=== PATIENT | female | born 1960 | race Caucasian/White ===

== ENCOUNTER 2021-01-11 10:57 | Outpatient (CLI) | payer OTHER, SELFPAY ==
--- NOTE | ~2021-01-11 | XR_ITS ---
EXAMINATION: XR sternum min 2V DATE: 01/11/2021 11:38 INDICATION: Upper anterior chest pain TECHNIQUE: Lateral and oblique PA views of the sternum were obtained. COMPARISON: PA and lateral chest radiograph dated 12/04/2015 FINDINGS: Alignment is normal. No fracture. Mild to moderate osteoarthritis at the bilateral sternoclavicular j oints. The presternal and retrosternal tissues appear unremarkable with no evident soft tissue swelli ng. Visualized portion of the lungs are clear. No evident pleural effusion or pneumothorax. Moderate thoracic spondylosis. IMPRESSION: 1. No acute osseous abnormality. Reviewed, dictated and finalized at location A.
== END 2021-01-11 10:58 | disposition home or self-care (01) ==
LOC: ANHIMG 11:00
PROVIDERS: PCP Physician Assistant; Visit Provider Physician Assistant
DX: R07.89 Other chest pain (principal)
CPT/HCPCS: 71120

== ENCOUNTER 2021-03-18 03:42 | Emergency (ER) | payer OTHER, SELFPAY ==
[2021-03-18] VITALS (13 sets, daily range): BP systolic 121–148; BP diastolic 52–95; PULSE 94–113; RESP 14–28; TEMP 37.2; O2SAT 95–98
--- NOTE | ~2021-03-18 | CT_ITS ---
EXAMINATION: CTA chest PE protocol DATE: 03/18/2021 05:22 INDICATION: Dyspnea and elevated d-dimer. TECHNIQUE: Computed tomography (CT) pulmonary angiogram of the chest was performed with 100 mL Omnipa que-350 intravenous contrast. Additional 3D reconstructions utilizing coronal maximum intensity proje ction (MIP) were performed. The dose-length product was 841.37 mGy-cm. COMPARISON: None FINDINGS: Good contrast opacification of the pulmonary arteries. There is mild streak artifact from dense contr ast in the superior vena cava and right atrium. Mild scattered respiratory motion artifact. Together this only minimally decreases sensitivity in the smaller subsegmental pulmonary arteries. No pulmonar y embolism. There are bilateral patchy groundglass opacities many of which appear to spare the immedi ately subpleural lung which would argue against pulmonary infarcts in these are most likely infectiou s/inflammatory in etiology. No pleural effusion or pneumothorax. Small calcified right lower lobe nod ule consistent with old granulomatous disease. Heart size is normal. No pericardial effusion. Thoraci c aorta is normal in caliber with no dissection. Mild likely reactive right hilar lymphadenopathy. Sm all sliding-type hiatal hernia. Diffuse hepatic steatosis. A couple low-attenuation hepatic cysts the largest measuring 1.5 cm. Mild to moderate thoracic spondylosis. IMPRESSION: 1. No pulmonary embolism. 2. Bilateral patchy groundglass opacities most prominent in the right lower lobe which are most likel y infectious/inflammatory in etiology. Reviewed, dictated and finalized at location A. K CLIPPER IMPRESSION: 1. No pulmonary embolism. 2. Bilateral patchy groundglass opacities most prominent in the right lower lob e which are most likely infectious/inflammatory in etiology.
--- NOTE | ~2021-03-18 | XR_ITS ---
EXAMINATION: XR chest 1V portable DATE: 03/18/2021 04:44 INDICATION: Cough . Centralized chest pain. TECHNIQUE: frontal view of the chest was obtained. COMPARISON: Chest radiograph dated 12/04/2015 FINDINGS: Subtle opacity in the right lower lung zones. No pleural effusion or pneumothorax. The cardiomediasti nal silhouette is normal. Mild lower thoracic levocurvature with moderate spondylosis. IMPRESSION: 1. Subtle opacity right lower lung zone which could represent atelectasis or pneumonia. Reviewed, dictated and finalized at location A. DENCY DIRECTOR IMPRESSION: 1. Subtle opacity right lower lung zone which could represent atelectasis or pn eumonia.
--- NOTE | 2021-03-18 04:03 | ECG_ITS ---
Measurements Intervals [place] Rate: 95 P: 61 AL: 157 QRS: 34 QRSD: 85 T: 59 QT: 334 QTc: 421 Interpretive Statements SINUS RHYTHM BASELINE ARTIFACT- I, II, III, AVR, AVL, AVF, V2-V6 NORMAL ECG Electronically Signed On 03-18-2021 6:55:46 NURSERY HELPER by Felice Mireles D.O.
--- NOTE | 2021-03-18 04:11 | ED.GENADULT ---
HPI - General Adult General Chief complaint: Weakness Stated complaint: painful inspiration Time Seen by Provider: 03/18/21 03:56 History of Present Illness HPI narrative: Patient 41-year-old female presents the emergency department with chief complaint of generalized malaise. The patient states for the last 2-week she has had a cough that has been nonproductive. The patient states that she has been attempting [id number] medications without improvement patient reports she has not been vaccinated for COVID-19 it is concerned that she may have COVID-19 patient reports he has had fevers at home reports that is not improved by anything and report that it is not worsened by anything either. Patient denies smoking Related Data Allergies Allergy/AdvReac Type Severity Reaction Status Date / Time estradiol AdvReac Unknown Unknown Verified 03/18/21 03:56 venlafaxine AdvReac Unknown Nervousness Verified 03/18/21 03:56 Review of Systems Review of Systems: A 10 system review of systems was completed on the patient and is negative except for what is stated in the HPI. Nursing and ancillary documentation was reviewed. [facility] Past Medical History Medical History Ovarian cyst Family History Family History Mother Patient's mother is in good health Diabetes mellitus Father Patient's father is Diabetes mellitus Hypertension Sibling Patient's sister is in good health Grandparent Family history of malignant neoplasm Social History Social History Smoking status: Never smoker Second hand tobacco smoke exposure: No Alcohol intake: never Exam Narrative: GENERAL: Well-appearing, well-nourished, and in no acute distress. HEAD: Normocephalic, atraumatic. EYES: PERRLA and EOMI. ENT: Nares clear, no rhinorrhea or epistaxis. Mucous membranes moist. NECK: Supple. CHEST: Clear to auscultation. No respiratory distress. HEART: Regular rate and rhythm. No murmur heard. Normal peripheral pulses. ABDOMEN: Soft, nontender, nondistended, normal active bowel sounds. EXTREMITIES: Normal range of motion. No edema. SKIN: Warm, dry, no rash. NEURO: No focal deficits. Alert and oriented x3. PSYCH: Normal mood and affect. Course Vital Signs Vital signs: Vital Signs Temperature 37.2 C 03/18/21 03:49 Pulse Rate 104 H 03/18/21 03:49 Respiratory Rate 19 03/18/21 03:49 Blood Pressure 145/87 H 03/18/21 03:49 Pulse Oximetry 96 03/18/21 03:49 Temperature 37.2 C 03/18/21 03:49 Pulse Rate 98 03/18/21 06:16 Respiratory Rate 18 03/18/21 06:16 Blood Pressure 128/73 03/18/21 06:16 Pulse Oximetry 95 03/18/21 06:16 Medical Decision Making Vital Signs Vital Signs: Vital Signs Temperature 37.2 C 03/18/21 03:49 Pulse Rate 104 H 03/18/21 03:49 Respiratory Rate 19 03/18/21 03:49 Blood Pressure 145/87 H 03/18/21 03:49 Pulse Oximetry 96 03/18/21 03:49 Temperature 37.2 C 03/18/21 03:49 Pulse Rate 98 03/18/21 06:16 Respiratory Rate 18 03/18/21 06:16 Blood Pressure 128/73 03/18/21 06:16 Pulse Oximetry 95 03/18/21 06:16 Lab Data Result diagrams: 03/18/21 04:11 03/18/21 04:11 Labs: Lab Results 03/18/21 03/18/21 03/18/21 Range/Units 04:11 04:11 04:11 WBC 2.3 L (4.5-10.0) K/mm3 RBC 4.06 L (4.2-5.4) M/mm3 Hgb 12.6 (12.0-15.0) g/dL Hct 36.7 L (37.0-47.0) % MCV 90.4 (80-100) fl MCH 31.0 (26-34) pg MCHC 34.3 (32-36) g/dl RDW 12.2 (11.5-14.5) % Plt Count 160 (150-375) k/mm3 MPV 9.8 (7.4-10.4) fl Immature Gran % (Auto) 0.4 (0-0.5) % Neut % (Auto) 52.4 (45.5-73.1) % Lymph % (Auto) 39.8 (18.3-44.2) % Cobb % (Auto) 6.6 (2.6-8.5) % Eos % (Auto) 0.4 (0-4.4) % Baso % (Auto) 0.
[2021-03-18] MEDS: BENZONATATE 100 MG CAPSULE 200 MG PO (04:15)
[2021-03-18 04:28] LABS: Basophils Percent Auto 0.4 % (0.2-1.2); Eosinophils Percent Auto 0.4 % (0-4.4); Hematocrit 36.7 % (37.0-47.0); Hemoglobin 12.6 g/dL (12.0-15.0); Immature Granulocyte Absolute 0.01 K/mm3 (0.00-0.031); Immature Granulocyte Percent A 0.4 % (0-0.5); Lymphocytes Percent Auto 39.8 % (18.3-44.2); Mean Corpuscular HGB Conc 34.3 g/dl (32-36); Mean Corpuscular Volume 90.4 fl (80-100); Mean Platelet Volume 9.8 fl (7.4-10.4); Monocytes Absolute Auto 0.2 K/mm3 (0.1-0.6); Monocytes Percent Auto 6.6 % (2.6-8.5); Neutrophils Absolute Auto 1.2 K/mm3 (1.3-6.7); Neutrophils Percent Auto 52.4 % (45.5-73.1); Platelet Count Result 160 k/mm3 (150-375); Red Blood Count 4.06 M/mm3 (4.2-5.4); Red Cell Distribution Width 12.2 % (11.5-14.5); White Blood Count 2.3 K/mm3 (4.5-10.0)
[2021-03-18 04:39] LABS: Alanine Aminotransferase 35 U/L (4-35); Albumin Level 3.8 g/dL (3.5-5.1); Alkaline Phosphatase 101 U/L (38-126); Anion Gap 8 mmol/L (8-16); Aspartate Amino Transferase 46 U/L (14-36); Bilirubin,Total 0.3 mg/dL (0.2-1.3); Blood Urea Nitrogen 16 mg/dL (7-17); Calcium 8.6 mg/dL (8.4-10.2); Carbon Dioxide 24 mmol/L (22-30); Chloride 102 mmol/L (98-107); Estimated CRCL calculation 108 ml/min; Estimated Glomerular Filt Rate > 60; Glucose 171 mg/dL (65-110); Lactic Acid Reflex 1.2 mmol/L (0.7-2.1); Potassium 3.8 mmol/L (3.4-5.0); Sodium 134 mmol/L (137-145)
[2021-03-18 04:40] LABS: D Dimer 0.53 ug/mL (<0.48)
--- NOTE | 2021-03-18 04:41 | PC.NURSE ---
PCXR being done. RT in department preparing to give pt the UDT.
[2021-03-18] MEDS: ALBUTEROL SULFATE (*SP) INHALER 2 PUFF INHALATION (04:44)
[2021-03-18 04:51] LABS: NT Pro B Type Natriuretic Pept 26 pg/mL (5-100); Troponin I < 0.012 ng/mL (0.000-0.034)
[2021-03-18 20:04] LABS: SARS-CoV-2 RNA PCR Positive
== END 2021-03-18 07:10 | disposition home or self-care (01) ==
PROVIDERS: Emergency Provider Emergency Medicine; PCP Physician Assistant
DX: U07.1 COVID-19 (principal); J12.82 Pneumonia due to coronavirus disease 2019
CPT/HCPCS: 36415; 71045; 71275; 80053; 83605; 83880; 84484; 85025; 85380; 87081; 87804; 87880; 93005; 99284; A9270; C9803; Q9967; U0003; U0005

== ENCOUNTER 2021-03-21 07:36 | Outpatient (RCR) | payer OTHER, SELFPAY ==
[2021-03-21 11:29] VITALS: BP 100/52; PULSE 80; RESP 18; TEMP 36.7; O2SAT 93
[2021-03-21] MEDS: diphenhydrAMINE HCl CAP 25 MG CAPSULE PO (11:32)
[2021-03-21] MEDS: ACETAMINOPHEN 325 MG TABLET 650 MG PO (11:32)
[2021-03-21] MEDS: FAMOTIDINE 20 MG TABLET PO (11:32)
[2021-03-21 12:55] VITALS: BP 106/49
--- NOTE | 2021-03-22 08:35 | PC.NURSE ---
Spoke to Ms Ramires, she stated she is still having some discomfort this morning but her Diarrhea has stopped by taking Imodium. She had a fever last night that was very high and called the ER but they told her to wait it out she stated, there would be a 5 hour wait to see her. She feels very weak today and dehydrated, and still having belly pain. I told her to go to the ER for hydration, and or call her PCP to see if they provided any other help. She said she would call PCP first otherwise she is going today to the ER. No other questions at this time.
== END 2021-03-21 17:00 ==
LOC: AMCINF 07:36
PROVIDERS: PCP Physician Assistant; Visit Provider Internal Medicine Hematology & Oncology
DX: U07.1 COVID-19 (principal)
CPT/HCPCS: A9270; M0243; Q0243

== ENCOUNTER 2021-03-24 15:07 | Inpatient (IN) | payer OTHER, SELFPAY ==
--- NOTE | ~2021-03-24 | XR_ITS ---
EXAMINATION: XR chest 1V portable EXAM DATE: 04/01/2021 08:36 INDICATION: COVID pneumonia. TECHNIQUE: Portable AP frontal chest x-ray was obtained. Comparison is made to prior examination from 03/24/2021. FINDINGS: Change in appearance of the COVID pneumonia to subacute stage with development of regions o f linear solid density, scarring/atelectasis. No new areas of opacification. No pneumothorax or pleur al effusion. Cardiomediastinal silhouette is normal. Mild thoracic spondylosis. IMPRESSION: Subacute COVID pneumonia. Reviewed, dictated and finalized at location B. SROOTS ORGANIZER IMPRESSION: Subacute COVID pneumonia.
--- NOTE | ~2021-03-24 | CT_ITS ---
EXAMINATION: CT chest abdomen pelvis wo con DATE: 04/02/2021 09:22 INDICATION: Diarrhea. COVID-19 pneumonia. TECHNIQUE: Computed tomography (CT) of the chest, abdomen, and pelvis was performed without intraveno us contrast. Automated exposure control and iterative reconstruction technique were employed. The dos e-length product was 1649.46 mGy-cm. COMPARISON: Chest CT 03/24/2021 FINDINGS: CHEST CT: There are patchy airspace and groundglass opacities with architectural distortion involving all lobes . No pleural effusion. The heart size is normal. No pericardial effusion. There is moderate thoracic spondylosis. ABDOMEN/PELVIS CT: There is a 16 mm cyst in the liver. The spleen, gallbladder, pancreas, adrenal glands, and kidneys ar e normal. There is no urolithiasis. There are no dilated loops of bowel. The colon is decompressed. T here is mild wall thickening of the rectosigmoid. The appendix is normal. There is a small sliding hi atal hernia. There are no pathologically enlarged lymph nodes. There is no free intraperitoneal fluid . There is mild lumbar spondylosis. IMPRESSION: 1. Diffuse lung disease with improvement from 03/24/2021, consistent with COVID-19 pneumonia. 2. Mild wall thickening of the rectosigmoid, consistent with colitis. Reviewed, dictated and finalized at location A. LATOR TECHNICIAN IMPRESSION: 1. Diffuse lung disease with improvement from 03/24/2021, consistent with COVID- 19 pneumonia. 2. Mild wall thickening of the rectosigmoid, consistent with colitis.
--- NOTE | ~2021-03-24 | US_ITS ---
EXAMINATION: US abdomen limited DATE: 03/25/2021 07:51 INDICATION: Gallbladder distention. TECHNIQUE: Multiple grayscale and Doppler ultrasound images of the abdomen were obtained. COMPARISON: Chest CT 03/24/2021 FINDINGS: The visualized portions of the head, body, and tail of the pancreas are normal. There is di ffuse hepatic steatosis. There is a 7 mm cyst in the liver. There is normal flow in main portal vein. The gallbladder is normal in size. No gallstones or gallbladder wall thickening. There was no sonogr aphic Conway sign. The common duct measures 7 mm. IMPRESSION: 1. Diffuse hepatic steatosis. 2. Mildly dilated common duct measuring 7 mm. Reviewed, dictated and finalized at location A. ACTOR OPERATOR SOLVENT PROCESS
--- NOTE | ~2021-03-24 | XR_ITS ---
EXAMINATION: XR chest 1V portable DATE: 03/24/2021 15:46 INDICATION: Shortness of breath. COVID-19 positive. TECHNIQUE: A single frontal view of the chest was obtained. COMPARISON: Chest single view 03/18/2021, chest CT 03/18/2021 FINDINGS: There are patchy airspace opacities in all lung zones bilaterally with sparing of the lung apices. No pleural effusion or pneumothorax. The heart size is normal. IMPRESSION: 1. Worsened diffuse lung disease, consistent with COVID-19 pneumonia. Reviewed, dictated and finalized at location A. DERER HAND
--- NOTE | ~2021-03-24 | CT_ITS ---
EXAMINATION: CTA chest PE protocol DATE: 03/24/2021 17:30 INDICATION: COVID-19 pneumonia. Tachycardia. TECHNIQUE: Computed tomography angiography (CTA) of the chest was performed with 100 mL Omnipaque-350 intravenous contrast timed to evaluate the pulmonary arteries. Coronal maximum intensity projection 3D-reconstructions were created by the technologist. Automated exposure control and iterative reconst ruction technique were employed. The dose-length product was 675.76 mGy-cm. COMPARISON: Chest CT 03/18/2021 FINDINGS: There are airspace and groundglass opacities and septal thickening throughout the lungs melyssa aterally. No pleural effusion. The heart size is normal. No pericardial effusion. There is no pulmona ry embolus. The gallbladder is distended. There is mild thoracic spondylosis. IMPRESSION: 1. No pulmonary embolus. 2. Worsened diffuse lung disease, consistent with COVID-19 pneumonia. 3. Gallbladder distention, which may be secondary to fasting. Correlate with physical exam to exclude acute cholecystitis. Reviewed, dictated and finalized at location A. TRONIC SYSTEMS SECURITY ASSESSMENT IMPRESSION: 1. No pulmonary embolus. 2. Worsened diffuse lung disease, consistent with COVID-19 pneumonia. 3. Gallbladder distention, which may be secondary to fasting. Correlate with ph ysical exam to exclude acute cholecystitis.
[2021-03-24 15:14] VITALS: BP 150/76; PULSE 100; RESP 19; TEMP 37.9; O2SAT 91
--- NOTE | 2021-03-24 15:15 | ECG_ITS ---
Measurements Intervals [place] Rate: 103 P: 14 NM: 148 QRS: 8 QRSD: 98 T: 29 QT: 348 QTc: 456 Interpretive Statements SINUS TACHYCARDIA MINIMAL Q WAVES- INFERIOR LEADS BORDERLINE ST-T WAVE ABNORMALITY- DIFFUSE LEADS BASELINE ARTIFACT- I, II, III, AVR, AVF, V1-V6 BORDERLINE ECG Electronically Signed On 03-24-2021 17:11:53 PUBLIC ADDRESS TECHNICIAN by Felice Mireles D.O.
[2021-03-24 15:20] VITALS: BP 144/80; PULSE 103; RESP 26; TEMP 37.1; O2SAT 90
[2021-03-24 15:37] VITALS: PULSE 109
--- NOTE | 2021-03-24 15:39 | ED.GENADULT ---
HPI - General Adult General Chief complaint: Shortness of Breath/Dyspnea Stated complaint: SOB, COVID + Source: patient Mode of arrival: ambulatory Limitations: no limitations History of Present Illness HPI narrative: Patient presents for evaluation of generalized weakness. She was seen here on 03/18/21 for cough. Her symptoms had started two weeks prior to date of her evaluation. She had a CXR that showed subtle opacity in the right lower lung zone. D-dimer was mildly elevated at 0.53. CTA of the chest showed no pulmonary embolism. There was bilateral patchy groundglass opacities most prominent in the right lower lobe. She was diagnosed with pneumonia. Her Covid test resulted as positive. She was sent home with prescriptions for azithromycin and cefdinir. She has been taking both medications as directed. She states that she feels worse then at the time of her previous evaluation here. She has experienced fatigue, fever, chills, shortness of breath, nausea, vomiting and diarrhea. She has underlying anxiety and attempted to come off her medications for anxiety back in January. She noted recurrence of her anxiety since stopping her medications and her symptoms have worsened since her sick symptoms. She reports sensation that her heart is racing. She tried using albuterol but states that worsened the sensation that her heart was racing. She did not receive COVID vaccination. She lives with her , who is also not vaccinated. He is not sick at this time. She has experienced xerostomia, loss of taste/smell, and decreased appetite. She states that she has not been eating or drinking and she feels dehydrated . Related Data Allergies Allergy/AdvReac Type Severity Reaction Status Date / Time estradiol AdvReac Unknown Unknown Verified 03/24/21 15:38 venlafaxine AdvReac Unknown Nervousness Verified 03/24/21 15:38 Review of Systems Review of Systems: CONSTITUTIONAL: Reports fever and chills EYES: Denies visual changes, redness, or discharge. ENT: Reports dry mouth. Reports loss of taste and smell. Denies rhinorrhea, congestion, sore throat, or otalgia. CARDIOVASCULAR: Reports chest pain and palpitations. Denies edema RESPIRATORY:Reports cough and shortness of breath GASTROINTESTINAL: Reports nausea, vomiting and diarrhea. Denies abdominal pain GENITOURINARY: Denies dysuria or hematuria. SKIN: Denies rash or itching. MUSCULOSKELETAL: Denies back pain, joint pain, or myalgia. NEUROLOGIC: Reports generalized weakness. Denies headache, numbness, or dizziness PSYCHIATRIC: Reports anxiety. Denies depression. [facility] Past Medical History Medical History (Updated 03/24/21 @ 17:58 by OSVALDO Lowe, ) Anxiety COVID Depression GERD (gastroesophageal reflux disease) Hypertension Ovarian cyst Surgical History Surgical History H/O lumpectomy History of removal of ovarian cyst Family History Family History Mother Patient's mother is in good health Diabetes mellitus Father Patient's father is Diabetes mellitus Hypertension Sibling Patient's sister is in good health Grandparent Family history of malignant neoplasm Social History Social History Smoking status: Never smoker Second hand tobacco smoke exposure: No Alcohol intake: never Substance use: never Living arrangements: with family Gender identity (if verbalized by the patient): Female Sexual Orientation (if Verbalized by the Patient): Straight or Heterosexual Spiritual care concerns: No Exam Narrative: GENERAL: Well-appearing, well-nourished, and in mild distress HEAD: Normocephalic, atraumatic. EYES: PERRLA and EOMI. ENT: Nares clear, no rhinorrhea or epistaxis. Mucous membranes moist. Oropharynx without tonsillar hypertrophy exudate or
[2021-03-24 15:51] LABS: Alveolar/Arterial O2 Gradient 81.9 mmHg; Base Excess ABG 3.3 mEq/l (+/-2.0); Carboxyhemoglobin 0.6 % THb (0-2.0); Fractional Inspired Oxygen 21 %; HCO3 ABG 26.8 mEq/l (22.0-26.0); Methemoglobin ABG 0.2 %THb (0-1.5); Oxygen Content ABG 9.3 %vol (16.0-22.0); PCO2 ABG 37.3 mmHg (35.0-45.0); Reduced Hemoglobin 53.8 %THb (0-5.0); Total Hemoglobin 14.7 g/dL (12.0-18.0); pH ABG 7.475 (7.350-7.450)
[2021-03-24 15:52] LABS: PO2 ABG 23.2 mmHg (80.0-100.0)
[2021-03-24] MEDS: SODIUM CHLORIDE 0.9% IV 1,000 ML 999 ML IV CONT (15:52)
[2021-03-24] MEDS: ACETAMINOPHEN 325 MG TABLET 650 MG PO (15:52)
[2021-03-24 15:54] LABS: Device ROOM AIR; Oxygen Saturation ABG 45.2 % (95.0-100.0); Oxyhemoglobin 45.4 % THb (90.0-100.0); Site Drawn RIGHT BRACHIAL
[2021-03-24 16:01] LABS: Basophils Percent Auto 0.4 % (0.2-1.2); Hematocrit 40.2 % (37.0-47.0); Hemoglobin 13.6 g/dL (12.0-15.0); Immature Granulocyte Absolute 0.07 K/mm3 (0.00-0.031); Immature Granulocyte Percent A 1.2 % (0-0.5); Lymphocytes Absolute Auto 0.93 K/mm3 (0.9-3.2); Lymphocytes Percent Auto 16.5 % (18.3-44.2); Mean Corpuscular HGB Conc 33.8 g/dl (32-36); Mean Corpuscular Hemoglobin 29.8 pg (26-34); Mean Corpuscular Volume 88.2 fl (80-100); Mean Platelet Volume 9.7 fl (7.4-10.4); Monocytes Absolute Auto 0.4 K/mm3 (0.1-0.6); Monocytes Percent Auto 6.8 % (2.6-8.5); Neutrophils Absolute Auto 4.2 K/mm3 (1.3-6.7); Neutrophils Percent Auto 75.1 % (45.5-73.1); Platelet Count Result 238 k/mm3 (150-375); Red Blood Count 4.56 M/mm3 (4.2-5.4); Red Cell Distribution Width 12.6 % (11.5-14.5); White Blood Count 5.6 K/mm3 (4.5-10.0)
[2021-03-24 16:09] LABS: INR 0.9; Prothrombin Time 12.5 Seconds (11.1-14.7)
[2021-03-24 16:10] LABS: Lactic Acid Reflex 1.4 mmol/L (0.7-2.1); Partial Thromboplastin Time 27.6 SECONDS (22.3-36.8)
[2021-03-24 16:44] LABS: Troponin I 0.016 ng/mL (0.000-0.034)
[2021-03-24 16:55] LABS: Alanine Aminotransferase 56 U/L (4-35); Albumin Level 3.4 g/dL (3.5-5.1); Alkaline Phosphatase 56 U/L (38-126); Anion Gap 5 mmol/L (8-16); Aspartate Amino Transferase 110 U/L (14-36); Bilirubin,Total 0.5 mg/dL (0.2-1.3); Blood Urea Nitrogen 7 mg/dL (7-17); CRP 15.1 mg/dL (<1.0); Calcium 7.5 mg/dL (8.4-10.2); Carbon Dioxide 28 mmol/L (22-30); Chloride 100 mmol/L (98-107); Estimated CRCL calculation 113 ml/min; Estimated Glomerular Filt Rate > 60; Glucose 99 mg/dL (65-110); Potassium 3.3 mmol/L (3.4-5.0); Sodium 133 mmol/L (137-145)
[2021-03-24] MEDS: DEXAMETHASONE SOD PHOS INJ 4 MG/ML VIAL 6 MG IV PUSH (17:05)
[2021-03-24] MEDS: hydrOXYzine pamoate 25 MG CAPSULE PO (17:05)
[2021-03-24 18:12] LABS: Magnesium 2.1 mg/dL (1.6-2.3)
[2021-03-24 18:25] LABS: Troponin I 0.022 ng/mL (0.000-0.034)
--- NOTE | 2021-03-24 19:58 | PM.IMHP ---
H&P: HPI History of Present Illness Date/Time: 03/24/21 19:58thialaina is a 61 year old female that tested positive for covid 03/18/21. The patient has been having generalized weakness and a cough. The patient had a chest x-ray when she was here in the emergency room on 03/18/2021 which showed subtle opacity of the right lower lung zones. She had elevated D-dimer at that time 0.53. CT of the chest showed no pulmonary embolism. She has been using her albuterol but has not helped her. She has had a poor appetite and has not been eating or drinking much. Chest x-ray today was read as worsened diffuse lung disease consistent with COVID 19 pneumonia. CTA pulmonary was read as no pulmonary emboli. Worsened diffuse lung disease, consistent with COVID-19 pneumonia. Gallbladder distention which BP secondary to fasting. Correlate with physical examination to exclude acute cholecystitis. The patient stated that she has generalized achiness and weakness. She said that she has had a terrible cough. The patient stated that she had a high fever several days ago. She did have the monoclonal infusion outpatient. Blood pressure was 144/80 and 105 or 58 respirations 26-28. Temperature 37.9? C. potassium 3.3. Calcium 7.5. AST 110 and ALT 56. CRP 15.1 patient is being admitted to inpatient services on date of service of 03/24/2020. Chief Complaint: sob Review of Systems Review of Systems: All systems reviewed & are unremarkable except as noted in HPI and below Constitutional: Constitutional: Reports as per HPI and Reports no additional constitutional complaints Eyes: Eyes: Reports as per HPI and Reports no additional eye complaints ENT: Reports system reviewed and no additional complaints, except as documented and Reports Normal hearing present Cardiovascular: Cardiovascular: Reports no additional cardiovascular complaints Respiratory: Respiratory: Reports no additional respiratory complaints and Reports no additional respiratory complaints Gastrointestinal: Gastrointestinal: Reports as per HPI and Reports no additional gastrointestinal complaints Musculoskeletal: Musculoskeletal: Reports no additional musculoskeletal complaints Integumentary/Breasts: Skin/Breast: Reports system reviewed and no additional complaints, except as docu and Reports as per HPI Neurologic: Reports system reviewed and no additional complaints, except as documented, Reports as per HPI and Reports Normal hearing present Psychiatric: Psychiatric: Reports no additional psychiatric complaints and Reports as per HPI Endocrine: Endocrine: Reports no additional endocrine complaints Hematologic/Lymphatic: Hematologic/Lymphatic: Reports no additional hematologic/lymphatic complaints Allergic/Immunologic: Allergic/Immunologic: Reports no additional allergic/immunologic complaints PMF Past Medical History Medical History (Updated 03/24/21 @ 20:22 by Shae Arizmendi NP) Anxiety Anxiety COVID Depression GERD (gastroesophageal reflux disease) Hypertension Ovarian cyst Tachycardia Surgical History Surgical History H/O lumpectomy History of removal of ovarian cyst Family History Family History Mother Patient's mother is in good health Diabetes mellitus Father Patient's father is Diabetes mellitus Hypertension Sibling Patient's sister is in good health Grandparent Family history of malignant neoplasm Social History Social History Social History: The patient lives with her and she has 1 child. The patient and her own a business. The patient is a lifelong nonsmoker and does not use any alcohol or illicit drugs. Her is a durable power finance attorney for healthcare. Code status full code Smoking status: Never smoker Second hand tobacco smoke exposure: No Alc
[2021-03-24 20:09] VITALS: BP 105/58; PULSE 84; RESP 28; O2SAT 97
[2021-03-24 21:26] VITALS: BMI 29.3
[2021-03-24 22:00] VITALS: BP 122/56; PULSE 80; RESP 18; TEMP 36.2; O2SAT 91
[2021-03-24 22:01] VITALS: O2SAT 95
[2021-03-24] MEDS: PANTOPRAZOLE SODIUM IV 40 MG VIAL IV PUSH (22:39)
[2021-03-25] VITALS (8 sets, daily range): BP systolic 106–133; BP diastolic 44–70; PULSE 62–91; RESP 18; TEMP 35.8–36.6; O2SAT 90–93
[2021-03-25 07:14] LABS: Basophils Percent Auto 0.4 % (0.2-1.2); Hematocrit 38.6 % (37.0-47.0); Immature Granulocyte Absolute 0.06 K/mm3 (0.00-0.031); Immature Granulocyte Percent A 1.3 % (0-0.5); Lymphocytes Absolute Auto 0.69 K/mm3 (0.9-3.2); Lymphocytes Percent Auto 14.7 % (18.3-44.2); Mean Corpuscular HGB Conc 33.7 g/dl (32-36); Mean Corpuscular Hemoglobin 30.4 pg (26-34); Mean Corpuscular Volume 90.2 fl (80-100); Mean Platelet Volume 9.7 fl (7.4-10.4); Monocytes Absolute Auto 0.3 K/mm3 (0.1-0.6); Monocytes Percent Auto 7.2 % (2.6-8.5); Neutrophils Absolute Auto 3.6 K/mm3 (1.3-6.7); Neutrophils Percent Auto 76.4 % (45.5-73.1); Nucleated Red Blood Cells Perc 0.6 % (0.0-0.2); Platelet Count Result 229 k/mm3 (150-375); Red Blood Count 4.28 M/mm3 (4.2-5.4); Red Cell Distribution Width 12.2 % (11.5-14.5); White Blood Count 4.7 K/mm3 (4.5-10.0)
[2021-03-25 07:25] LABS: Lactate Dehydrogenase 1499 U/L (313-618); Lipase 36 U/L (23-300); Magnesium 2.6 mg/dL (1.6-2.3)
[2021-03-25 07:31] LABS: Lactic Acid Reflex 1.3 mmol/L (0.7-2.1)
[2021-03-25 07:50] LABS: Alanine Aminotransferase 58 U/L (4-35); Anion Gap 5 mmol/L (8-16); Blood Urea Nitrogen 10 mg/dL (7-17); Calcium 8.3 mg/dL (8.4-10.2); Carbon Dioxide 27 mmol/L (22-30); Chloride 101 mmol/L (98-107); Estimated CRCL calculation 113 ml/min; Estimated Glomerular Filt Rate > 60; Glucose 141 mg/dL (65-110); Potassium 3.6 mmol/L (3.4-5.0); Sodium 133 mmol/L (137-145)
[2021-03-25 08:01] LABS: Prothrombin Time 13.3 Seconds (11.1-14.7)
[2021-03-25 09:32] LABS: Ferritin > 2000.00 ng/mL (11.1-264)
[2021-03-25] MEDS: ENOXAPARIN 40 MG/0.4 ML SYRINGE SUB-Q (10:03)
[2021-03-25] MEDS: METOPROLOL TARTRATE 25 MG TABLET PO (10:05)
[2021-03-25] MEDS: FLUoxetine HCL 20 MG CAPSULE PO (10:05)
[2021-03-25] MEDS: PANTOPRAZOLE SODIUM IV 40 MG VIAL IV PUSH ×2 (11:54→21:51)
--- NOTE | 2021-03-25 11:58 | PM.IMPN ---
Progress Note: A&P Assessment and Plan (1) Pneumonia due to 2019-nCoV: Code(s): U07.1 - COVID-19; J12.82 - Pneumonia due to coronavirus disease 2019 Status: Acute Assessment and Plan: -Patient was started on remdesivir and Decadron. -Inflammatory markers elevated -The patient is currently on 4 L per nasal cannula. -Continue with p.r.n. albuterol. Robitussin. -The patient has already gotten the monoclonal antibodies. (2) Depression: Code(s): F32.A - Depression, unspecified Status: Chronic Assessment and Plan: -Patient tells me that she has been on Prozac. (3) Anxiety: Code(s): F41.9 - Anxiety disorder, unspecified Status: Chronic Assessment and Plan: -Continue Prozac -Home clorazepate Dipotassium was not working -Xanax 0.5 mg PO TID prn (4) Hypertension: Code(s): I10 - Essential (primary) hypertension Status: Chronic Assessment and Plan: Stable Continue with metoprolol. (5) GERD (gastroesophageal reflux disease): Code(s): K21.9 - Gastro-esophageal reflux disease without esophagitis Status: Acute Assessment and Plan: Continue with IV Protonix. (6) Transaminitis: Code(s): R74.01 - Elevation of levels of liver transaminase levels Status: Acute Assessment and Plan: -Slightly elevated most likely secondary to COVID. -gallbladder was dilated on the CT scan -RUQ US shows diffuse fatty liver, mildly dilated common duct measuring 7mm Subjective Date/time seen: 03/25/21 11:58 Interval history: 89 yo female w/ hx of anxiety/depression admitted to hospital for COVID. Today she is having increased anxiety. Feels weak. Still coughing. Was having diarrhea but this has resolved. On 4L NC. Review of Systems Review of Systems: General: + fevers, + chills, +fatigue Eyes: Denies vision changes or eye pain ENT: Denies nasal congestion or sore throat Respiratory: + cough, + shortness of breath Cardiovascular: Denies chest pain, palpitations, or lower extremity edema Gastrointestinal: Denies abdominal pain, vomiting, or diarrhea Genitourinary: Denies dysuria or urinary frequency Musculoskeletal: Denies back pain or muscle aches Neurological: Denies headache, paraesthesias, or motor weakness Integumentary: Denies rash or other skin lesions Exam Narrative: General: No acute distress, non toxic appearing, anxious Eyes: PERRL, no scleral icterus HEENT: NCAT, external ears normal, MMM Respiratory: No respiratory distress, Lungs CTA bilaterally, no wheezing Cardiovascular: RRR, no murmur Abdominal: Soft, nontender, non distended, no rebound or guarding Musculoskeletal: Moves all 4 extremities, no edema Neurological: A/Ox3, speech normal, no facial asymmetry Skin: Warm, dry, no rashes Psychiatric: Normal affect, normal mood Objective Data Vital Signs Vital Signs: Vital Signs - 24 hr 03/24/21 15:14 03/24/21 15:20 03/24/21 15:37 Temperature 100.2 F H 98.7 F Pulse Rate 100 103 H 109 H Respiratory Rate 19 26 H Blood Pressure 150/76 H 144/80 H Pulse Oximetry 91 90 03/24/21 20:09 03/24/21 22:00 03/24/21 22:01 Temperature 97.2 F L Pulse Rate 84 80 Respiratory Rate 28 H 18 Blood Pressure 105/58 L 122/56 L Pulse Oximetry 97 91 95 03/25/21 00:27 03/25/21 05:14 03/25/21 08:00 Temperature 97.4 F L 97.1 F L 97.2 F L Pulse Rate 79 68 90 Respiratory Rate 18 18 18 Blood Pressure 106/46 L 133/67 118/62 Pulse Oximetry 93 92 92 03/25/21 10:05 Temperature Pulse Rate 90 Respiratory Rate Blood Pressure Pulse Oximetry Intake/Output Intake/Output: Intake & Output 03/22/21 03/23/21 03/24/21 03/25/21 23:59 23:59 23:59 23:59 Intake Total 1050 320 Balance 1050 320 Meds/Results Medications: Active Medications Generic Name Dose Route Start Last Admin Trade Name Freq PRN Reason Stop Dose Admin Albuterol 2 puff 03/24/21
[2021-03-25] MEDS: CLORAZEPATE DIPOTASSIUM (*CRX) 3.75 MG TABLET PO (12:44)
[2021-03-25] MEDS: guaiFENesin/DEXTROMETHORPHAN 10 ML UDC PO (17:42)
[2021-03-25] MEDS: ALPRAZolam (*CRX) 0.5 MG TABLET PO (17:42)
[2021-03-25] MEDS: REMDESIVIR 100 MG/NS 250 ML 100 MG/250 ML BAG 250 MG IVPB (21:53)
[2021-03-26] MEDS: ALPRAZolam (*CRX) 0.5 MG TABLET PO ×3 (00:58→22:11)
[2021-03-26 04:00] VITALS: BP 122/60; PULSE 93; RESP 18; TEMP 36.1; O2SAT 94
[2021-03-26 07:17] LABS: Basophils Percent Auto 0.2 % (0.2-1.2); Hematocrit 38.1 % (37.0-47.0); Lymphocytes Absolute Auto 0.99 K/mm3 (0.9-3.2); Lymphocytes Percent Auto 9.9 % (18.3-44.2); Mean Corpuscular HGB Conc 34.1 g/dl (32-36); Mean Corpuscular Hemoglobin 29.9 pg (26-34); Mean Corpuscular Volume 87.6 fl (80-100); Mean Platelet Volume 10.2 fl (7.4-10.4); Monocytes Absolute Auto 0.4 K/mm3 (0.1-0.6); Monocytes Percent Auto 3.8 % (2.6-8.5); Neutrophils Absolute Auto 8.5 K/mm3 (1.3-6.7); Neutrophils Percent Auto 85.1 % (45.5-73.1); Platelet Count Result 310 k/mm3 (150-375); Red Blood Count 4.35 M/mm3 (4.2-5.4); Red Cell Distribution Width 12.3 % (11.5-14.5)
[2021-03-26 07:42] LABS: Alanine Aminotransferase 52 U/L (4-35); Albumin Level 3.6 g/dL (3.5-5.1); Alkaline Phosphatase 69 U/L (38-126); Anion Gap 10 mmol/L (8-16); Aspartate Amino Transferase 73 U/L (14-36); Bilirubin,Total 0.4 mg/dL (0.2-1.3); Blood Urea Nitrogen 14 mg/dL (7-17); Calcium 8.4 mg/dL (8.4-10.2); Carbon Dioxide 23 mmol/L (22-30); Chloride 103 mmol/L (98-107); Estimated CRCL calculation 96 ml/min; Estimated Glomerular Filt Rate > 60; Glucose 131 mg/dL (65-110); Potassium 3.3 mmol/L (3.4-5.0); Sodium 136 mmol/L (137-145)
[2021-03-26 08:00] VITALS: BP 133/74; PULSE 81; RESP 18; TEMP 36.1; O2SAT 91
[2021-03-26 08:21] LABS: INR 1.1; Prothrombin Time 13.8 Seconds (11.1-14.7)
[2021-03-26 09:31] VITALS: PULSE 80
[2021-03-26] MEDS: METOPROLOL TARTRATE 25 MG TABLET PO (09:31)
[2021-03-26] MEDS: FLUoxetine HCL 20 MG CAPSULE PO (09:32)
[2021-03-26] MEDS: PANTOPRAZOLE SODIUM IV 40 MG VIAL IV PUSH ×2 (09:32→20:33)
[2021-03-26] MEDS: ENOXAPARIN 40 MG/0.4 ML SYRINGE SUB-Q (09:33)
[2021-03-26 12:00] VITALS: BP 136/62; PULSE 65; RESP 16; TEMP 36.5; O2SAT 92
[2021-03-26] MEDS: ACETAMINOPHEN 325 MG TABLET 650 MG PO ×2 (15:20→22:14)
[2021-03-26 16:00] VITALS: BP 128/57; PULSE 73; RESP 20; TEMP 35.8; O2SAT 90
--- NOTE | 2021-03-26 16:46 | PM.IMPN ---
Progress Note: A&P Assessment and Plan (1) Pneumonia due to 2019-nCoV: Code(s): U07.1 - COVID-19; J12.82 - Pneumonia due to coronavirus disease 2019 Status: Acute Assessment and Plan: Patient was tested positive for COVID on 03/18/2021 -continue remdesivir, Decadron and Lovenox -The patient is currently on 4 L per nasal cannula. -Continue with p.r.n. albuterol -The patient has already gotten the monoclonal antibodies -CTA shows no signs of PE but does show significant pneumonia -she is unvaccinated (2) Depression: Code(s): F32.A - Depression, unspecified Status: Chronic Assessment and Plan: Patient's depression and anxiety has been worse since being diagnosed with COVID -Continue Prozac and Xanax p.r.n. -support given (3) Anxiety: Code(s): F41.9 - Anxiety disorder, unspecified Status: Chronic Assessment and Plan: Continue Prozac and Xanax (4) Hypertension: Code(s): I10 - Essential (primary) hypertension Status: Chronic Assessment and Plan: Last blood pressure 136/62 -continue metoprolol (5) GERD (gastroesophageal reflux disease): Code(s): K21.9 - Gastro-esophageal reflux disease without esophagitis Status: Acute Assessment and Plan: Continue with IV Protonix. (6) Transaminitis: Code(s): R74.01 - Elevation of levels of liver transaminase levels Status: Acute Assessment and Plan: Slightly elevated most likely secondary to COVID. -gallbladder was dilated on the CT scan and RUQ US shows diffuse fatty liver, mildly dilated common duct measuring 7mm -improving today Time Spent With Patient Time with patient: 25 - 35 minutes Subjective Date/time seen: 03/26/21 16:46 Interval history: Pt is a 61-year-old female here for COVID. Patient was seen today and states she feels short of breath with any movement and sometimes at rest. She continues to cough. She says her anxiety is worse since she has had COVID and is having nightmares. She continues to cough. No deep sternal chest pain. She has decreased appetite. Review of Systems Review of Systems: All systems reviewed & are unremarkable except as noted in HPI and below Exam Narrative: General: Well developed well nourished patient in NAD HEENT: normocephalic Neck: supple Neuro: Alert and oriented x4 CV:RRR Resp: Crackles bilaterally. 4 L of oxygen applied. No conversational dyspnea. Abd: Soft, non distended. No pain to palpation. Positive bowel sounds Extremities: No swelling, erythema, or pain to palpation. Objective Data Vital Signs Vital Signs: Vital Signs - 24 hr 03/25/21 20:00 03/25/21 23:58 03/26/21 04:00 Temperature 97.9 F 96.9 F L 96.9 F L Pulse Rate 81 81 93 Respiratory Rate 18 18 18 Blood Pressure 107/44 L 133/70 122/60 Pulse Oximetry 92 92 94 03/26/21 08:00 03/26/21 09:31 03/26/21 12:00 Temperature 96.9 F L 97.7 F Pulse Rate 81 80 65 Respiratory Rate 18 16 Blood Pressure 133/74 136/62 Pulse Oximetry 91 92 Intake/Output Intake/Output: Intake & Output 03/23/21 03/24/21 03/25/21 03/26/21 23:59 23:59 23:59 23:59 Intake Total 7995 345 5755 Balance 3249 264 6276 Meds/Results Medications: Active Medications Generic Name Dose Route Start Last Admin Trade Name Jose Enriqueq PRN Reason Stop Dose Admin Acetaminophen 650 mg 03/26/21 12:59 03/26/21 15:20 Acetaminophen 325 Mg Tablet PO 650 mg Q6H PRN Administration Mild Pain (1-3) or Fever Albuterol 2 puff 03/24/21 20:36 Albuterol Sulfate (*Sp) Aerosol 1 Puff INHALATION Q6HRT PRN Shortness Of Breath Alprazolam 0.5 mg 03/25/21 14:16 03/26/21 11:01 Alprazolam (*Crx) 0.5 Mg Tablet PO 0.5 mg TID PRN Administration Anxiety Dexamethasone Sodium Phosphate 6 mg 03/25/21 09:00 03/26/21 09:32 Dexamethasone Sod Phos Inj 10 Mg/Ml 1 Ml Vial IV PUSH 04/02/21 09:01 6 mg DAILY EMIGDIO
[2021-03-26] MEDS: POTASSIUM CHLORIDE 20 MEQ TABLET 40 MEQ PO (17:50)
[2021-03-26 20:00] VITALS: BP 132/56; PULSE 73; PULSE 80; RESP 18; TEMP 36.3; O2SAT 92
[2021-03-26] MEDS: REMDESIVIR 100 MG/NS 250 ML 100 MG/250 ML BAG 250 MG IVPB (22:44)
[2021-03-27] VITALS (13 sets, daily range): BP systolic 114–147; BP diastolic 62–76; PULSE 74–90; RESP 17–22; TEMP 35.6–36.7; O2SAT 86–98
[2021-03-27 06:56] LABS: Hematocrit 36.6 % (37.0-47.0); Hemoglobin 12.6 g/dL (12.0-15.0); Mean Corpuscular HGB Conc 34.4 g/dl (32-36); Mean Corpuscular Hemoglobin 30.1 pg (26-34); Mean Corpuscular Volume 87.6 fl (80-100); Mean Platelet Volume 9.5 fl (7.4-10.4); Platelet Count Result 322 k/mm3 (150-375); Red Blood Count 4.18 M/mm3 (4.2-5.4); Red Cell Distribution Width 12.2 % (11.5-14.5)
[2021-03-27 07:04] LABS: INR 1.1; Prothrombin Time 14.5 Seconds (11.1-14.7)
[2021-03-27 07:08] LABS: Alanine Aminotransferase 42 U/L (4-35); Albumin Level 3.4 g/dL (3.5-5.1); Alkaline Phosphatase 62 U/L (38-126); Anion Gap 7 mmol/L (8-16); Aspartate Amino Transferase 47 U/L (14-36); Bilirubin,Total 0.5 mg/dL (0.2-1.3); Blood Urea Nitrogen 14 mg/dL (7-17); CRP 3.2 mg/dL (<1.0); Calcium 8.3 mg/dL (8.4-10.2); Carbon Dioxide 24 mmol/L (22-30); Chloride 105 mmol/L (98-107); Estimated CRCL calculation 113 ml/min; Estimated Glomerular Filt Rate > 60; Glucose 104 mg/dL (65-110); Lactate Dehydrogenase 1252 U/L (313-618); Potassium 3.7 mmol/L (3.4-5.0); Sodium 136 mmol/L (137-145)
[2021-03-27] MEDS: ALPRAZolam (*CRX) 0.5 MG TABLET PO (07:55)
[2021-03-27] MEDS: METOPROLOL TARTRATE 25 MG TABLET PO (07:59)
[2021-03-27] MEDS: ENOXAPARIN 40 MG/0.4 ML SYRINGE SUB-Q (07:59)
[2021-03-27] MEDS: PANTOPRAZOLE SODIUM IV 40 MG VIAL IV PUSH ×2 (07:59→21:26)
[2021-03-27 08:47] LABS: Hepatitis B Surface Antigen Negative (Negative)
[2021-03-27 08:52] LABS: HAV RESULT Negative (Negative); Hepatitis B Core IgM Result Negative (Negative)
[2021-03-27 09:04] LABS: Hepatitis C Virus Antibody Negative (Negative)
[2021-03-27] MEDS: FLUoxetine HCL 20 MG CAPSULE PO (10:58)
--- NOTE | 2021-03-27 16:02 | PM.IMPN ---
Progress Note: A&P Assessment and Plan (1) Pneumonia due to 2019-nCoV: Code(s): U07.1 - COVID-19; J12.82 - Pneumonia due to coronavirus disease 2019 Status: Acute Assessment and Plan: Patient was tested positive for COVID on 03/18/2021 -continue remdesivir, Decadron and Lovenox -The patient is currently on 4 L per nasal cannula. -Continue with p.r.n. albuterol -The patient has already gotten the monoclonal antibodies -CTA shows no signs of PE but does show significant pneumonia -she is unvaccinated (2) Depression: Code(s): F32.A - Depression, unspecified Status: Chronic Assessment and Plan: Patient's depression and anxiety has been worse since being diagnosed with COVID -Continue Prozac and Xanax p.r.n. (will increase). Will do continuous pulse ox monitoring while on this -support given (3) Anxiety: Code(s): F41.9 - Anxiety disorder, unspecified Status: Chronic Assessment and Plan: Continue Prozac and Xanax (4) Hypertension: Code(s): I10 - Essential (primary) hypertension Status: Chronic Assessment and Plan: Last blood pressure 114/65 -continue metoprolol (5) GERD (gastroesophageal reflux disease): Code(s): K21.9 - Gastro-esophageal reflux disease without esophagitis Status: Acute Assessment and Plan: Continue with IV Protonix. (6) Transaminitis: Code(s): R74.01 - Elevation of levels of liver transaminase levels Status: Acute Assessment and Plan: Slightly elevated most likely secondary to COVID. -gallbladder was dilated on the CT scan and RUQ US shows diffuse fatty liver, mildly dilated common duct measuring 7mm -improving today Subjective Date/time seen: 03/27/21 16:02 Interval history: Pt is a 61-year-old female here for COVID. Patient was seen today and states she still feels anxious. She says that she is not hearing or seeing voices but having disturbing dreams on the steroids. She continues to feel short of breath with rest and activity. She has a dry cough. No chest pain. She has had panic disorder as a child. She says the sunlight in her room makes it worse. She has no thoughts of harming herself or others. Exam Narrative: General: Well developed well nourished patient in NAD HEENT: normocephalic Neck: supple Neuro: Alert and oriented x4 CV:RRR Resp: Crackles bilaterally. 4 L of oxygen applied. No conversational dyspnea. Abd: Soft, non distended. No pain to palpation. Positive bowel sounds Extremities: No swelling, erythema, or pain to palpation. Objective Data Vital Signs Vital Signs: Vital Signs - 24 hr 03/26/21 20:00 03/27/21 00:00 03/27/21 00:10 Temperature 97.4 F L 97.4 F L Pulse Rate 80 80 Respiratory Rate 18 18 Blood Pressure 132/56 L 145/73 H Pulse Oximetry 92 95 92 03/27/21 04:00 03/27/21 07:59 03/27/21 08:00 Temperature 96.8 F L 96.3 F L Pulse Rate 77 84 77 Respiratory Rate 18 19 Blood Pressure 137/64 114/65 Pulse Oximetry 94 90 03/27/21 08:45 03/27/21 09:00 03/27/21 12:50 Temperature Pulse Rate Respiratory Rate Blood Pressure Pulse Oximetry 86 L 94 94 03/27/21 13:00 Temperature Pulse Rate Respiratory Rate Blood Pressure Pulse Oximetry 92 Intake/Output Intake/Output: Intake & Output 03/24/21 03/25/21 03/26/21 03/27/21 23:59 23:59 23:59 23:59 Intake Total 7044 601 3174 950 Balance 9648 661 1557 950 Meds/Results Medications: Active Medications Generic Name Dose Route Start Last Admin Trade Name Freq PRN Reason Stop Dose Admin Acetaminophen 650 mg 03/26/21 12:59 03/26/21 22:14 Acetaminophen 325 Mg Tablet PO 650 mg Q6H PRN Administration Mild Pain (1-3) or Fever Albuterol 2 puff 03/24/21 20:36 Albuterol Sulfate (*Sp) Aerosol 1 Puff INHALATION Q6HRT PRN Shortness Of Breath Alprazolam 1 mg 03/27/21 14:15 Alprazolam (*Crx
[2021-03-27] MEDS: ACETAMINOPHEN 325 MG TABLET 650 MG PO (17:55)
[2021-03-27] MEDS: ALPRAZolam (*CRX) 0.5 MG TABLET 1 MG PO (17:56)
[2021-03-27] MEDS: guaiFENesin 12 HR 600 MG TABCR PO (21:26)
[2021-03-27] MEDS: REMDESIVIR 100 MG/NS 250 ML 100 MG/250 ML BAG 250 MG IVPB (21:26)
[2021-03-28] VITALS (7 sets, daily range): BP systolic 123–148; BP diastolic 54–80; PULSE 59–90; RESP 16–22; TEMP 36.1–36.5; O2SAT 92–96
[2021-03-28] MEDS: ALPRAZolam (*CRX) 0.5 MG TABLET 1 MG PO ×3 (05:10→22:20)
[2021-03-28 07:00] LABS: Hematocrit 36.7 % (37.0-47.0); Hemoglobin 12.7 g/dL (12.0-15.0); Mean Corpuscular HGB Conc 34.6 g/dl (32-36); Mean Corpuscular Hemoglobin 30.5 pg (26-34); Mean Platelet Volume 9.8 fl (7.4-10.4); Platelet Count Result 337 k/mm3 (150-375); Red Blood Count 4.17 M/mm3 (4.2-5.4); Red Cell Distribution Width 12.3 % (11.5-14.5); White Blood Count 9.9 K/mm3 (4.5-10.0)
[2021-03-28 07:29] LABS: Alanine Aminotransferase 35 U/L (4-35); Albumin Level 3.3 g/dL (3.5-5.1); Alkaline Phosphatase 59 U/L (38-126); Anion Gap 7 mmol/L (8-16); Aspartate Amino Transferase 40 U/L (14-36); Bilirubin,Total 0.6 mg/dL (0.2-1.3); Blood Urea Nitrogen 13 mg/dL (7-17); CRP 4.9 mg/dL (<1.0); Calcium 8.3 mg/dL (8.4-10.2); Carbon Dioxide 25 mmol/L (22-30); Chloride 105 mmol/L (98-107); Estimated CRCL calculation 113 ml/min; Estimated Glomerular Filt Rate > 60; Glucose 99 mg/dL (65-110); Potassium 3.3 mmol/L (3.4-5.0); Sodium 137 mmol/L (137-145)
[2021-03-28 07:43] LABS: INR 1.2; Prothrombin Time 14.8 Seconds (11.1-14.7)
[2021-03-28] MEDS: POTASSIUM CHLORIDE 20 MEQ TABLET 40 MEQ PO (08:09)
[2021-03-28] MEDS: ENOXAPARIN 40 MG/0.4 ML SYRINGE SUB-Q (08:09)
[2021-03-28] MEDS: guaiFENesin 12 HR 600 MG TABCR PO ×2 (08:09→20:16)
[2021-03-28] MEDS: PANTOPRAZOLE SODIUM IV 40 MG VIAL IV PUSH ×2 (08:10→20:16)
[2021-03-28] MEDS: METOPROLOL TARTRATE 25 MG TABLET PO (08:10)
[2021-03-28] MEDS: FLUoxetine HCL 20 MG CAPSULE PO (08:10)
[2021-03-28] MEDS: ACETAMINOPHEN 325 MG TABLET 650 MG PO ×3 (09:13→22:26)
[2021-03-28] MEDS: SALINE 0.65% NAS SOLN 44 ML BTL 1 SPRAY NASAL (15:09)
--- NOTE | 2021-03-28 15:28 | PM.IMPN ---
Progress Note: A&P Assessment and Plan (1) Pneumonia due to 2019-nCoV: Code(s): U07.1 - COVID-19; J12.82 - Pneumonia due to coronavirus disease 2019 Status: Acute Assessment and Plan: Patient was tested positive for COVID on 03/18/2021 -continue remdesivir, Decadron and Lovenox -The patient is currently on 4 L per nasal cannula. Will wean o2 as tolerated -Continue with p.r.n. albuterol -The patient has already gotten the monoclonal antibodies -CTA shows no signs of PE but does show significant pneumonia -she is unvaccinated (2) Depression: Code(s): F32.A - Depression, unspecified Status: Chronic Assessment and Plan: Patient's depression and anxiety has been worse since being diagnosed with COVID -Continue Prozac and Xanax p.r.n. (increased). Will do continuous pulse ox monitoring while on this -support given (3) Anxiety: Code(s): F41.9 - Anxiety disorder, unspecified Status: Chronic Assessment and Plan: Continue Prozac and Xanax (4) Hypertension: Code(s): I10 - Essential (primary) hypertension Status: Chronic Assessment and Plan: Last blood pressure 141/63 -continue metoprolol (5) GERD (gastroesophageal reflux disease): Code(s): K21.9 - Gastro-esophageal reflux disease without esophagitis Status: Acute Assessment and Plan: Continue with IV Protonix. (6) Transaminitis: Code(s): R74.01 - Elevation of levels of liver transaminase levels Status: Acute Assessment and Plan: Slightly elevated and improving most likely secondary to COVID. -gallbladder was dilated on the CT scan and RUQ US shows diffuse fatty liver, mildly dilated common duct measuring 7mm -improving today Subjective Date/time seen: 03/28/21 15:28 Interval history: Pt is a 61-year-old female here for COVID. Patient was seen today and states she still feels anxious but it is better compared to yesterday. She continues to feel short of breath with rest and activity. She has a dry cough. No chest pain. She continues to have a headache. She feels like she has made no progress. Exam Narrative: General: Well developed well nourished patient in NAD HEENT: normocephalic Neck: supple Neuro: Alert and oriented x4 CV:RRR Resp: Crackles bilaterally. 4 L of oxygen applied. No conversational dyspnea. Abd: Soft, non distended. No pain to palpation. Positive bowel sounds Extremities: No swelling, erythema, or pain to palpation. Objective Data Vital Signs Vital Signs: Vital Signs - 24 hr 03/27/21 16:00 03/27/21 20:00 03/27/21 22:10 Temperature 98.0 F 97 F L Pulse Rate 74 90 88 Respiratory Rate 17 22 H 20 Blood Pressure 142/76 H 147/74 H Pulse Oximetry 98 94 95 03/28/21 00:48 03/28/21 06:19 03/28/21 08:10 Temperature 97.7 F 97 F L Pulse Rate 90 68 70 Respiratory Rate 22 H 20 Blood Pressure 148/76 H 138/80 Pulse Oximetry 94 92 03/28/21 12:00 Temperature 97.5 F L Pulse Rate 67 Respiratory Rate 18 Blood Pressure 141/63 H Pulse Oximetry 95 Intake/Output Intake/Output: Intake & Output 03/25/21 03/26/21 03/27/21 03/28/21 23:59 23:59 23:59 23:59 Intake Total 550 2280 2800 510 Balance 550 2280 2800 510 Meds/Results Medications: Active Medications Generic Name Dose Route Start Last Admin Trade Name Freq PRN Reason Stop Dose Admin Acetaminophen 650 mg 03/26/21 12:59 03/28/21 15:09 Acetaminophen 325 Mg Tablet PO 650 mg Q6H PRN Administration Mild Pain (1-3) or Fever Albuterol 2 puff 03/24/21 20:36 Albuterol Sulfate (*Sp) Aerosol 1 Puff INHALATION Q6HRT PRN Shortness Of Breath Alprazolam 1 mg 03/27/21 14:15 03/28/21 15:10 Alprazolam (*Crx) 0.5 Mg Tablet PO 1 mg TID PRN Administration Anxiety Benzocaine 1 lozenge 03/27/21 15:57 Benzocaine/Menthol (*Bkc) 18 Ea Lozenge PO PRN PRN Sore Throat Dexamethasone
[2021-03-28] MEDS: REMDESIVIR 100 MG/NS 250 ML 100 MG/250 ML BAG 250 MG IVPB (22:20)
[2021-03-29] VITALS (7 sets, daily range): BP systolic 116–144; BP diastolic 55–81; PULSE 62–86; RESP 18–24; TEMP 36.1–36.7; O2SAT 90–96
[2021-03-29 07:29] LABS: Hemoglobin 13.2 g/dL (12.0-15.0); Mean Corpuscular HGB Conc 34.7 g/dl (32-36); Mean Corpuscular Volume 86.4 fl (80-100); Mean Platelet Volume 9.6 fl (7.4-10.4); Platelet Count Result 357 k/mm3 (150-375); Red Cell Distribution Width 12.1 % (11.5-14.5); White Blood Count 9.8 K/mm3 (4.5-10.0)
[2021-03-29 07:44] LABS: Alanine Aminotransferase 30 U/L (4-35); Albumin Level 3.3 g/dL (3.5-5.1); Alkaline Phosphatase 58 U/L (38-126); Anion Gap 7 mmol/L (8-16); Aspartate Amino Transferase 31 U/L (14-36); Bilirubin,Total 0.4 mg/dL (0.2-1.3); Blood Urea Nitrogen 14 mg/dL (7-17); CRP 6.1 mg/dL (<1.0); Calcium 8.3 mg/dL (8.4-10.2); Carbon Dioxide 23 mmol/L (22-30); Chloride 106 mmol/L (98-107); Estimated CRCL calculation 96 ml/min; Estimated Glomerular Filt Rate > 60; Glucose 99 mg/dL (65-110); Magnesium 2.7 mg/dL (1.6-2.3); Sodium 136 mmol/L (137-145)
[2021-03-29] MEDS: ACETAMINOPHEN 325 MG TABLET 650 MG PO ×2 (10:29→20:23)
[2021-03-29] MEDS: ALPRAZolam (*CRX) 0.5 MG TABLET 1 MG PO ×2 (10:29→20:24)
[2021-03-29] MEDS: METOPROLOL TARTRATE 25 MG TABLET PO (10:30)
[2021-03-29] MEDS: PANTOPRAZOLE SODIUM IV 40 MG VIAL IV PUSH ×2 (10:30→20:24)
[2021-03-29] MEDS: guaiFENesin 12 HR 600 MG TABCR PO ×2 (10:30→20:24)
[2021-03-29] MEDS: FLUoxetine HCL 20 MG CAPSULE PO (10:31)
[2021-03-29] MEDS: ENOXAPARIN 40 MG/0.4 ML SYRINGE SUB-Q (10:31)
[2021-03-29] MEDS: BENZOCAINE/MENTHOL (*BKC) 18 EA LOZENGE 1 LOZENGE PO (10:33)
--- NOTE | 2021-03-29 16:20 | PM.IMPN ---
Progress Note: A&P Assessment and Plan (1) Pneumonia due to 2019-nCoV: Code(s): U07.1 - COVID-19; J12.82 - Pneumonia due to coronavirus disease 2019 Status: Acute Assessment and Plan: Patient was tested positive for COVID on 03/18/2021 -continue remdesivir (day 6 of 10), Decadron and Lovenox -The patient is currently on 4 L per nasal cannula. Will wean o2 as tolerated -Continue with p.r.n. albuterol -The patient has already gotten the monoclonal antibodies -CTA shows no signs of PE but does show significant pneumonia -she is unvaccinated -she needs to be out of bed for every meal. (2) Depression: Code(s): F32.A - Depression, unspecified Status: Chronic Assessment and Plan: Improved. Patient's depression and anxiety has been worse since being diagnosed with COVID -Continue Prozac and Xanax p.r.n. Will do continuous pulse ox monitoring while on this -support given (3) Anxiety: Code(s): F41.9 - Anxiety disorder, unspecified Status: Chronic Assessment and Plan: Continue Prozac and Xanax (4) Hypertension: Code(s): I10 - Essential (primary) hypertension Status: Chronic Assessment and Plan: Last blood pressure 123/55 -continue metoprolol (5) GERD (gastroesophageal reflux disease): Code(s): K21.9 - Gastro-esophageal reflux disease without esophagitis Status: Acute Assessment and Plan: Continue with IV Protonix. Will add Tums (6) Transaminitis: Code(s): R74.01 - Elevation of levels of liver transaminase levels Status: Acute Assessment and Plan: Resolved, likely due to COVID. -gallbladder was dilated on the CT scan and RUQ US shows diffuse fatty liver, mildly dilated common duct measuring 7mm (7) Acute respiratory failure with hypoxia: Code(s): J96.01 - Acute respiratory failure with hypoxia Status: Acute Assessment and Plan: due to above -continue o2 Subjective Date/time seen: 03/29/21 16:20 Interval history: Pt is a 61-year-old female here for COVID. Patient was seen today and is doing better today than she has been doing in the last few days. She has been eating better and her anxiety seems to be more under control. She has not really been out of bed much but plans to get out of bed with every meal. She has been going to the commode independently and does not need physical therapy. She has no chest pain, nausea, vomiting, fevers or chills. She does have some indigestion occasionally. Her headache is improving but comes and goes. Exam Narrative: General: Well developed well nourished patient in NAD HEENT: normocephalic Neck: supple Neuro: Alert and oriented x4 CV:RRR Resp: Crackles bilaterally. 4 L of oxygen applied. No conversational dyspnea. She did get a little hypoxic when getting up to the commode down to 87 but rebounded quickly. Abd: Soft, non distended. No pain to palpation. Positive bowel sounds Extremities: No swelling, erythema, or pain to palpation. Objective Data Vital Signs Vital Signs: Vital Signs - 24 hr 03/28/21 20:00 03/29/21 00:00 03/29/21 04:00 Temperature 97.2 F L 97.4 F L 97.5 F L Pulse Rate 64 62 82 Respiratory Rate 20 20 22 H Blood Pressure 133/68 129/66 144/81 H Pulse Oximetry 93 93 96 03/29/21 08:00 03/29/21 10:30 03/29/21 11:57 Temperature 97.0 F L 98.0 F Pulse Rate 85 85 70 Respiratory Rate 24 H 24 H Blood Pressure 116/64 123/55 L Pulse Oximetry 90 93 Intake/Output Intake/Output: Intake & Output 03/26/21 03/27/21 03/28/21 03/29/21 23:59 23:59 23:59 23:59 Intake Total 2280 2800 1560 470 Output Total 850 Balance 2280 2800 1560 -380 Meds/Results Medications: Active Medications Generic Name Dose Route Start Last Admin Trade Name Freq PRN Reason Stop Dose Admin Acetaminophen 650 mg 03/26/21 12:59 03/29/21 10:29 Acetaminophen 325 Mg Tablet PO 650 mg Q6H
[2021-03-30] VITALS (8 sets, daily range): BP systolic 105–144; BP diastolic 56–84; PULSE 57–84; RESP 16–21; TEMP 36–36.7; O2SAT 93–98
[2021-03-30 06:55] LABS: Basophils Percent Auto 0.3 % (0.2-1.2); Eosinophils Percent Auto 0.1 % (0-4.4); Hematocrit 39.3 % (37.0-47.0); Hemoglobin 13.7 g/dL (12.0-15.0); Immature Granulocyte Absolute 0.17 K/mm3 (0.00-0.031); Immature Granulocyte Percent A 1.6 % (0-0.5); Lymphocytes Absolute Auto 0.62 K/mm3 (0.9-3.2); Mean Corpuscular HGB Conc 34.9 g/dl (32-36); Mean Corpuscular Hemoglobin 29.9 pg (26-34); Mean Corpuscular Volume 85.8 fl (80-100); Mean Platelet Volume 9.4 fl (7.4-10.4); Monocytes Absolute Auto 0.9 K/mm3 (0.1-0.6); Monocytes Percent Auto 8.3 % (2.6-8.5); Neutrophils Absolute Auto 8.7 K/mm3 (1.3-6.7); Neutrophils Percent Auto 83.7 % (45.5-73.1); Platelet Count Result 376 k/mm3 (150-375); Red Blood Count 4.58 M/mm3 (4.2-5.4); Red Cell Distribution Width 12.5 % (11.5-14.5); White Blood Count 10.4 K/mm3 (4.5-10.0)
[2021-03-30 07:14] LABS: Anion Gap 8 mmol/L (8-16); Blood Urea Nitrogen 12 mg/dL (7-17); CRP 4.2 mg/dL (<1.0); Calcium 8.4 mg/dL (8.4-10.2); Carbon Dioxide 21 mmol/L (22-30); Chloride 106 mmol/L (98-107); Estimated CRCL calculation 113 ml/min; Estimated Glomerular Filt Rate > 60; Glucose 106 mg/dL (65-110); Sodium 135 mmol/L (137-145)
[2021-03-30] MEDS: ALPRAZolam (*CRX) 0.5 MG TABLET 1 MG PO ×2 (10:28→20:05)
[2021-03-30] MEDS: FLUoxetine HCL 20 MG CAPSULE PO (10:29)
[2021-03-30] MEDS: PANTOPRAZOLE SODIUM IV 40 MG VIAL IV PUSH ×2 (10:29→20:06)
[2021-03-30] MEDS: ENOXAPARIN 40 MG/0.4 ML SYRINGE SUB-Q (10:29)
[2021-03-30] MEDS: guaiFENesin 12 HR 600 MG TABCR PO ×2 (10:29→20:09)
[2021-03-30] MEDS: METOPROLOL TARTRATE 25 MG TABLET PO (10:29)
[2021-03-30 11:11] LABS: INR 1.1; Prothrombin Time 14.3 Seconds (11.1-14.7)
[2021-03-30 11:14] LABS: Alanine Aminotransferase 25 U/L (4-35)
[2021-03-30] MEDS: REMDESIVIR 100 MG/NS 250 ML 100 MG/250 ML BAG 250 MG IVPB (12:31)
--- NOTE | 2021-03-30 13:43 | PM.IMPN ---
Progress Note: A&P Assessment and Plan (1) Pneumonia due to 2019-nCoV: Code(s): U07.1 - COVID-19; J12.82 - Pneumonia due to coronavirus disease 2019 Status: Acute Assessment and Plan: Patient was tested positive for COVID on 03/18/2021 -continue remdesivir (day 7 of 10), Decadron and Lovenox -The patient is currently on 4 L per nasal cannula. Will wean o2 as tolerated -Continue with p.r.n. albuterol -The patient has already gotten the monoclonal antibodies -CTA shows no signs of PE but does show significant pneumonia -she is unvaccinated -she needs to be out of bed for every meal. (2) Depression: Code(s): F32.A - Depression, unspecified Status: Chronic Assessment and Plan: Improved. Patient's depression and anxiety has been worse since being diagnosed with COVID -Continue Prozac and Xanax p.r.n. Will do continuous pulse ox monitoring while on this -support given (3) Anxiety: Code(s): F41.9 - Anxiety disorder, unspecified Status: Chronic Assessment and Plan: Continue Prozac and Xanax (4) Hypertension: Code(s): I10 - Essential (primary) hypertension Status: Chronic Assessment and Plan: Last blood pressure 116/78 -continue metoprolol (5) GERD (gastroesophageal reflux disease): Code(s): K21.9 - Gastro-esophageal reflux disease without esophagitis Status: Acute Assessment and Plan: Continue with IV Protonix and tums (6) Transaminitis: Code(s): R74.01 - Elevation of levels of liver transaminase levels Status: Acute Assessment and Plan: Resolved, likely due to COVID. -gallbladder was dilated on the CT scan and RUQ US shows diffuse fatty liver, mildly dilated common duct measuring 7mm (7) Acute respiratory failure with hypoxia: Code(s): J96.01 - Acute respiratory failure with hypoxia Status: Acute Assessment and Plan: due to above -continue o2 Subjective Date/time seen: 03/30/21 13:43 Interval history: Pt is a 61-year-old female here for COVID. Patient was seen today and is doing better every day. She is able to get up to the commode by herself and is not too sob when doing so. She has no CP, nausea, vomiting, diarrhea, or constipation. Her anxiety is better but still there. Exam Narrative: General: Well developed well nourished patient in NAD HEENT: normocephalic Neck: supple Neuro: Alert and oriented x4 CV:RRR Resp: Crackles bilaterally. 4 L of oxygen applied. No conversational dyspnea. Abd: Soft, non distended. No pain to palpation. Positive bowel sounds Extremities: No swelling, erythema, or pain to palpation. Objective Data Vital Signs Vital Signs: Vital Signs - 24 hr 03/29/21 16:00 03/29/21 20:00 03/30/21 00:00 Temperature 97.4 F L 96.9 F L 96.9 F L Pulse Rate 78 75 72 Respiratory Rate 20 18 18 Blood Pressure 125/68 120/73 127/56 L Pulse Oximetry 91 92 97 03/30/21 04:00 03/30/21 08:00 03/30/21 10:29 Temperature 97.0 F L 97.6 F Pulse Rate 57 L 84 84 Respiratory Rate 18 16 Blood Pressure 144/70 H 141/84 H Pulse Oximetry 98 94 03/30/21 12:00 Temperature 96.8 F L Pulse Rate 70 Respiratory Rate 21 H Blood Pressure 116/78 Pulse Oximetry 94 Intake/Output Intake/Output: Intake & Output 03/27/21 03/28/21 03/29/21 03/30/21 23:59 23:59 23:59 23:59 Intake Total 2800 1560 1220 1110 Output Total 850 500 Balance 2800 1560 370 610 Meds/Results Medications: Active Medications Generic Name Dose Route Start Last Admin Trade Name Freq PRN Reason Stop Dose Admin Acetaminophen 650 mg 03/26/21 12:59 03/29/21 20:23 Acetaminophen 325 Mg Tablet PO 650 mg Q6H PRN Administration Mild Pain (1-3) or Fever Albuterol 2 puff 03/24/21 20:36 Albuterol Sulfate (*Sp) Aerosol 1 Puff INHALATION Q6HRT PRN Shortness Of Breath Alprazolam 1 mg 03/27/21 14:15 03/30/21 10:28 Al
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
[2021-03-30] MEDS: ACETAMINOPHEN 325 MG TABLET 650 MG PO (20:05)
[2021-03-31 04:00] VITALS: BP 121/56; PULSE 58; RESP 20; TEMP 36.6; O2SAT 95
[2021-03-31 07:32] LABS: Basophils Percent Auto 0.2 % (0.2-1.2); Hematocrit 42.6 % (37.0-47.0); Hemoglobin 14.3 g/dL (12.0-15.0); Immature Granulocyte Absolute 0.21 K/mm3 (0.00-0.031); Immature Granulocyte Percent A 1.8 % (0-0.5); Lymphocytes Absolute Auto 0.68 K/mm3 (0.9-3.2); Lymphocytes Percent Auto 5.8 % (18.3-44.2); Mean Corpuscular HGB Conc 33.6 g/dl (32-36); Mean Corpuscular Volume 89.3 fl (80-100); Mean Platelet Volume 9.7 fl (7.4-10.4); Monocytes Percent Auto 8.1 % (2.6-8.5); Neutrophils Absolute Auto 9.9 K/mm3 (1.3-6.7); Neutrophils Percent Auto 84.1 % (45.5-73.1); Platelet Count Result 395 k/mm3 (150-375); Red Blood Count 4.77 M/mm3 (4.2-5.4); Red Cell Distribution Width 12.6 % (11.5-14.5); White Blood Count 11.7 K/mm3 (4.5-10.0)
[2021-03-31 07:52] LABS: Alanine Aminotransferase 26 U/L (4-35); Albumin Level 3.4 g/dL (3.5-5.1); Alkaline Phosphatase 59 U/L (38-126); Anion Gap 9 mmol/L (8-16); Aspartate Amino Transferase 27 U/L (14-36); Bilirubin,Total 0.4 mg/dL (0.2-1.3); Blood Urea Nitrogen 12 mg/dL (7-17); CRP 2.4 mg/dL (<1.0); Calcium 8.6 mg/dL (8.4-10.2); Carbon Dioxide 25 mmol/L (22-30); Chloride 102 mmol/L (98-107); Estimated CRCL calculation 113 ml/min; Estimated Glomerular Filt Rate > 60; Glucose 94 mg/dL (65-110); Sodium 136 mmol/L (137-145)
[2021-03-31 07:55] LABS: INR 1.1; Prothrombin Time 13.9 Seconds (11.1-14.7)
[2021-03-31 08:00] VITALS: BP 148/90; PULSE 65; PULSE 76; RESP 14; RESP 16; TEMP 36.4; O2SAT 94; O2SAT 95
[2021-03-31 10:06] VITALS: PULSE 76
[2021-03-31] MEDS: FLUoxetine HCL 20 MG CAPSULE PO (10:06)
[2021-03-31] MEDS: ENOXAPARIN 40 MG/0.4 ML SYRINGE SUB-Q (10:06)
[2021-03-31] MEDS: METOPROLOL TARTRATE 25 MG TABLET PO (10:06)
[2021-03-31] MEDS: guaiFENesin 12 HR 600 MG TABCR PO ×2 (10:06→21:56)
[2021-03-31] MEDS: ALPRAZolam (*CRX) 0.5 MG TABLET 1 MG PO (10:07)
[2021-03-31] MEDS: PANTOPRAZOLE SODIUM IV 40 MG VIAL IV PUSH ×2 (10:07→21:55)
--- NOTE | 2021-03-31 10:35 | PM.IMPN ---
Progress Note: A&P Assessment and Plan (1) Pneumonia due to 2019-nCoV: Code(s): U07.1 - COVID-19; J12.82 - Pneumonia due to coronavirus disease 2019 Status: Acute Assessment and Plan: Patient was tested positive for COVID on 03/18/2021 -continue remdesivir (day 7 of 10), Decadron and Lovenox -The patient is currently on 4 L per nasal cannula. Will wean o2 as tolerated -Continue with p.r.n. albuterol. Will do incentive spirometer -The patient has already gotten the monoclonal antibodies -CTA shows no signs of PE but does show significant pneumonia -recheck CXR and inflammatory markers tomorrow -she is unvaccinated -hopefully can go home in next few days once o2 has been wean. May need oxygen short term at home. Pt is very anxious about this. (2) Depression: Code(s): F32.A - Depression, unspecified Status: Chronic Assessment and Plan: Improved. Patient's depression and anxiety has been worse since being diagnosed with COVID -Continue Prozac and Xanax p.r.n. Will decrease xanax dose since she is doing better -plan discussed for home meds. No xanax but she will go back on her home benzo. -support given (3) Anxiety: Code(s): F41.9 - Anxiety disorder, unspecified Status: Chronic Assessment and Plan: Continue Prozac and Xanax (4) Hypertension: Code(s): I10 - Essential (primary) hypertension Status: Chronic Assessment and Plan: Last blood pressure 148/90 -continue metoprolol (5) GERD (gastroesophageal reflux disease): Code(s): K21.9 - Gastro-esophageal reflux disease without esophagitis Status: Acute Assessment and Plan: Continue with IV Protonix and tums (6) Transaminitis: Code(s): R74.01 - Elevation of levels of liver transaminase levels Status: Acute Assessment and Plan: Resolved, likely due to COVID. -gallbladder was dilated on the CT scan and RUQ US shows diffuse fatty liver, mildly dilated common duct measuring 7mm (7) Acute respiratory failure with hypoxia: Code(s): J96.01 - Acute respiratory failure with hypoxia Status: Acute Assessment and Plan: due to above -continue o2 Subjective Date/time seen: 03/31/21 10:35 Interval history: Pt is a 61-year-old female here for COVID. Patient was seen today and is doing better every day. She is able to get up to the commode by herself and is not too sob when doing so. She has no CP, nausea, vomiting, or constipation. Her anxiety is better but still there. She has been having diarrhea today and is sore. Exam Narrative: General: Well developed well nourished patient in NAD HEENT: normocephalic Neck: supple Neuro: Alert and oriented x4 CV:RRR Resp: Crackles bilaterally and cough with deep inspirations. 4 L of oxygen applied. No conversational dyspnea. Abd: Soft, non distended. No pain to palpation. Positive bowel sounds Extremities: No swelling, erythema, or pain to palpation. Objective Data Vital Signs Vital Signs: Vital Signs - 24 hr 03/30/21 12:00 03/30/21 16:00 03/30/21 20:00 Temperature 96.8 F L 97.5 F L 98.0 F Pulse Rate 70 66 64 Respiratory Rate 21 H 16 18 Blood Pressure 116/78 105/70 126/68 Pulse Oximetry 94 96 93 03/30/21 23:52 03/31/21 04:00 03/31/21 08:00 Temperature 98.0 F 97.9 F 97.6 F Pulse Rate 72 58 L 65 Respiratory Rate 20 20 14 Blood Pressure 113/57 L 121/56 L 148/90 H Pulse Oximetry 96 95 95 03/31/21 10:06 Temperature Pulse Rate 76 Respiratory Rate Blood Pressure Pulse Oximetry Intake/Output Intake/Output: Intake & Output 03/28/21 03/29/21 03/30/21 03/31/21 23:59 23:59 23:59 23:59 Intake Total 1560 1220 1882 240 Output Total 850 500 Balance 1285 667 6002 240 Meds/Results Medications: Active Medications Generic Name Dose Route Start Last Admin Trade Name Freq PRN Reason Stop Dose Admin Acetaminophen 650 mg 03/26/21 12:59
[2021-03-31 12:00] VITALS: BP 120/58; PULSE 86; RESP 16; TEMP 36.4; O2SAT 94
[2021-03-31] MEDS: REMDESIVIR 100 MG/NS 250 ML 100 MG/250 ML BAG 250 MG IVPB (12:22)
[2021-03-31] MEDS: ACETAMINOPHEN 325 MG TABLET 650 MG PO ×2 (12:23→19:51)
[2021-03-31 16:00] VITALS: BP 123/64; PULSE 77; RESP 20; TEMP 36.3; O2SAT 94
[2021-03-31] MEDS: PHENYLEPH/SHARK OIL/MO/PETROL CREAM 26 GM 1 APPLIC RECTAL (18:58)
[2021-03-31] MEDS: ALPRAZolam (*CRX) 0.5 MG TABLET PO (19:51)
[2021-03-31 20:00] VITALS: BP 111/55; PULSE 67; RESP 18; TEMP 36.2; O2SAT 97
[2021-04-01] VITALS (7 sets, daily range): BP systolic 113–131; BP diastolic 53–67; PULSE 62–73; RESP 17–20; TEMP 36.1–36.6; O2SAT 92–97
[2021-04-01] MEDS: METOPROLOL TARTRATE 25 MG TABLET PO (08:02)
[2021-04-01] MEDS: FLUoxetine HCL 20 MG CAPSULE PO (08:02)
[2021-04-01] MEDS: ENOXAPARIN 40 MG/0.4 ML SYRINGE SUB-Q (08:02)
[2021-04-01] MEDS: guaiFENesin 12 HR 600 MG TABCR PO ×2 (08:02→20:36)
[2021-04-01] MEDS: ACETAMINOPHEN 325 MG TABLET 650 MG PO ×2 (08:03→18:54)
[2021-04-01] MEDS: PHENYLEPH/SHARK OIL/MO/PETROL CREAM 26 GM 1 APPLIC RECTAL (08:03)
[2021-04-01] MEDS: PANTOPRAZOLE SODIUM IV 40 MG VIAL IV PUSH ×2 (08:03→20:35)
[2021-04-01] MEDS: ALPRAZolam (*CRX) 0.5 MG TABLET PO ×2 (08:04→18:54)
[2021-04-01 08:12] LABS: Alanine Aminotransferase 28 U/L (4-35); Albumin Level 3.3 g/dL (3.5-5.1); Alkaline Phosphatase 69 U/L (38-126); Anion Gap 6 mmol/L (8-16); Aspartate Amino Transferase 22 U/L (14-36); Bilirubin,Total 0.3 mg/dL (0.2-1.3); Blood Urea Nitrogen 13 mg/dL (7-17); CRP 1.5 mg/dL (<1.0); Calcium 8.6 mg/dL (8.4-10.2); Carbon Dioxide 26 mmol/L (22-30); Chloride 104 mmol/L (98-107); Estimated CRCL calculation 96 ml/min; Estimated Glomerular Filt Rate > 60; Glucose 111 mg/dL (65-110); Lactate Dehydrogenase 610 U/L (313-618); Magnesium 2.4 mg/dL (1.6-2.3); Potassium 3.8 mmol/L (3.4-5.0); Sodium 136 mmol/L (137-145)
[2021-04-01 08:13] LABS: Prothrombin Time 13.5 Seconds (11.1-14.7)
[2021-04-01 08:33] LABS: Hematocrit 41.3 % (37.0-47.0); Hemoglobin 14.1 g/dL (12.0-15.0); Mean Corpuscular HGB Conc 34.1 g/dl (32-36); Mean Corpuscular Hemoglobin 29.6 pg (26-34); Mean Corpuscular Volume 86.8 fl (80-100); Mean Platelet Volume 9.7 fl (7.4-10.4); Platelet Count Result 408 k/mm3 (150-375); Red Blood Count 4.76 M/mm3 (4.2-5.4); Red Cell Distribution Width 12.5 % (11.5-14.5); White Blood Count 12.5 K/mm3 (4.5-10.0)
[2021-04-01] MEDS: REMDESIVIR 100 MG/NS 250 ML 100 MG/250 ML BAG 250 MG IVPB (10:21)
[2021-04-01] MEDS: SODIUM CHLORIDE NASAL GEL 14.1 GM 1 APPLIC NASAL (14:05)
--- NOTE | 2021-04-01 14:11 | PM.IMPN ---
Progress Note: A&P Assessment and Plan (1) Pneumonia due to 2019-nCoV: Code(s): U07.1 - COVID-19; J12.82 - Pneumonia due to coronavirus disease 2019 Status: Acute Assessment and Plan: Patient was tested positive for COVID on 03/18/2021 -continue remdesivir (day 8 of 10), Decadron and Lovenox -Continue with p.r.n. albuterol (she has not needed this) -The patient has already gotten the monoclonal antibodies -CTA shows no signs of PE but does show significant pneumonia -repeat CXR shows improvement -she is unvaccinated -The patient is currently on room air so far today. Plan for home o2 eval tomorrow with possible d/c tomorrow. (2) Depression: Code(s): F32.A - Depression, unspecified Status: Chronic Assessment and Plan: Improved. Patient's depression and anxiety has been worse since being diagnosed with COVID but improving daily -Continue Prozac and Xanax p.r.n. -support given (3) Anxiety: Code(s): F41.9 - Anxiety disorder, unspecified Status: Chronic Assessment and Plan: Continue Prozac and Xanax (4) Hypertension: Code(s): I10 - Essential (primary) hypertension Status: Chronic Assessment and Plan: Last blood pressure 124/67 -continue metoprolol (5) GERD (gastroesophageal reflux disease): Code(s): K21.9 - Gastro-esophageal reflux disease without esophagitis Status: Acute Assessment and Plan: Continue with IV Protonix and tums (6) Transaminitis: Code(s): R74.01 - Elevation of levels of liver transaminase levels Status: Acute Assessment and Plan: Resolved, likely due to COVID. -gallbladder was dilated on the CT scan and RUQ US shows diffuse fatty liver, mildly dilated common duct measuring 7mm (7) Acute respiratory failure with hypoxia: Code(s): J96.01 - Acute respiratory failure with hypoxia Status: Acute Assessment and Plan: due to above -continue o2 Subjective Date/time seen: 04/01/21 14:11 Interval history: Pt is a 61-year-old female here for COVID. Patient was seen today and doing better yet again today. This is the 1st day she has been off oxygen at rest And still require some oxygen with therapy. She says her cough is improving and she does not really feel short of breath. She has been able to walk to the bathroom and back without issue. She has complaints of a dry nose. No chest pain, nausea, vomiting, fevers or chills. she says her anxiety is well controlled at this time. Exam Narrative: General: Well developed well nourished patient in NAD HEENT: normocephalic Neck: supple Neuro: Alert and oriented x4 CV:RRR Resp: Crackles bilaterally and cough with deep inspirations. On room air. No conversational dyspnea. Abd: Soft, non distended. No pain to palpation. Positive bowel sounds Extremities: No swelling, erythema, or pain to palpation. Objective Data Vital Signs Vital Signs: Vital Signs - 24 hr 03/31/21 16:00 03/31/21 20:00 04/01/21 00:00 Temperature 97.4 F L 97.1 F L 96.9 F L Pulse Rate 77 67 66 Respiratory Rate 20 18 18 Blood Pressure 123/64 111/55 L 115/55 L Pulse Oximetry 94 97 94 04/01/21 04:00 04/01/21 08:00 04/01/21 08:02 Temperature 97.7 F 96.9 F L Pulse Rate 62 66 62 Respiratory Rate 18 18 Blood Pressure 131/67 120/63 Pulse Oximetry 97 95 04/01/21 11:58 Temperature 97.2 F L Pulse Rate 66 Respiratory Rate 18 Blood Pressure 124/67 Pulse Oximetry 95 Intake/Output Intake/Output: Intake & Output 03/29/21 03/30/21 03/31/21 04/01/21 23:59 23:59 23:59 23:59 Intake Total 1220 2132 1320 1002 Output Total 850 500 Balance 370 1632 1320 1002 Meds/Results Medications: Active Medications Generic Name Dose Route Start Last Admin Trade Name Freq PRN Reason Stop Dose Admin Acetaminophen 650 mg 03/26/21 12:59 04/01/21 08:03 Acetaminophen 325 Mg Tablet PO 650 mg Q
--- NOTE | 2021-04-01 15:39 | PCOTNOTE ---
On 04/01/21, the student, Rita HERNANDEZ, provided care and completed [facility] documentation on this patient. I have reviewed the student's documentation and agree with the findings.
[2021-04-02] VITALS (10 sets, daily range): BP systolic 96–131; BP diastolic 38–58; PULSE 74–103; RESP 16–20; TEMP 35.5–36.6; O2SAT 86–97
[2021-04-02] MEDS: ACETAMINOPHEN 325 MG TABLET 650 MG PO ×2 (03:30→22:44)
[2021-04-02 06:24] LABS: Hemoglobin 13.8 g/dL (12.0-15.0); Mean Corpuscular HGB Conc 33.7 g/dl (32-36); Mean Corpuscular Hemoglobin 29.9 pg (26-34); Mean Corpuscular Volume 88.7 fl (80-100); Mean Platelet Volume 9.9 fl (7.4-10.4); Platelet Count Result 408 k/mm3 (150-375); Red Blood Count 4.62 M/mm3 (4.2-5.4); Red Cell Distribution Width 12.9 % (11.5-14.5); White Blood Count 28.4 K/mm3 (4.5-10.0)
[2021-04-02 06:35] LABS: Alanine Aminotransferase 24 U/L (4-35); Anion Gap 9 mmol/L (8-16); Blood Urea Nitrogen 14 mg/dL (7-17); Calcium 8.5 mg/dL (8.4-10.2); Carbon Dioxide 23 mmol/L (22-30); Chloride 106 mmol/L (98-107); Estimated CRCL calculation 84 ml/min; Estimated Glomerular Filt Rate > 60; Glucose 136 mg/dL (65-110); Potassium 3.1 mmol/L (3.4-5.0); Sodium 138 mmol/L (137-145)
[2021-04-02 07:01] LABS: INR 1.2; Prothrombin Time 14.7 Seconds (11.1-14.7)
[2021-04-02] MEDS: guaiFENesin 12 HR 600 MG TABCR PO ×2 (08:37→20:43)
[2021-04-02] MEDS: FLUoxetine HCL 20 MG CAPSULE PO (08:37)
[2021-04-02] MEDS: METOPROLOL TARTRATE 25 MG TABLET PO (08:37)
[2021-04-02] MEDS: ENOXAPARIN 40 MG/0.4 ML SYRINGE SUB-Q (08:37)
[2021-04-02] MEDS: POTASSIUM CHLORIDE 20 MEQ TABLET 40 MEQ PO (08:37)
[2021-04-02] MEDS: PANTOPRAZOLE SODIUM IV 40 MG VIAL IV PUSH ×2 (08:38→20:43)
[2021-04-02] MEDS: ALPRAZolam (*CRX) 0.5 MG TABLET PO ×2 (08:39→22:43)
[2021-04-02 09:30] LABS: Lactic Acid Reflex 2.6 mmol/L (0.7-2.1)
[2021-04-02] MEDS: REMDESIVIR 100 MG/NS 250 ML 100 MG/250 ML BAG 250 MG IVPB (11:05)
[2021-04-02] MEDS: SALINE 0.65% NAS SOLN 44 ML BTL 1 SPRAY NASAL (11:06)
[2021-04-02] MEDS: SODIUM CHLORIDE NASAL GEL 14.1 GM 1 APPLIC NASAL (11:07)
[2021-04-02] MEDS: PHENYLEPH/SHARK OIL/MO/PETROL CREAM 26 GM 1 APPLIC RECTAL (11:07)
--- NOTE | 2021-04-02 11:12 | HOMEO2EVAL ---
Evaluation was performed at [facility]
--- NOTE | 2021-04-02 11:16 | HOMEO2EVAL ---
Evaluation was performed at [facility] Home Oxygen Evaluation RC: Home Oxygen (O2) Evaluation Start: 04/02/21 11:13 Freq: ONCE Status: Active Protocol: RPE Activity Type Activity Date Activity User E-Sign Co-Sign Detail Recorded Client Recorded Date Recorded By Document 04/02/21 10:30 [email or web address] [email or web address] 04/02/21 11:16 LUZ Document 04/02/21 10:31 [email or web address] [email or web address] 04/02/21 11:16 LUZ Document 04/02/21 10:32 [email or web address] [email or web address] 04/02/21 11:16 LUZ Document 04/02/21 10:33 [email or web address] [email or web address] 04/02/21 11:16 LUZ Document 04/02/21 10:40 [email or web address] [email or web address] 04/02/21 11:16 LUZ 04/02/21 04/02/21 04/02/21 10:30 10:31 10:32 Home O2 Evaluation Test Phase Resting Exercise Exercise Oxygen Delivery Room Air Room Air Nasal Cannula Oxygen Flow Rate (L/min) 1 Pulse Oximetry (90-100 %) 92 86 L 87 L Pulse Rate (60-100 beats/min) Home Oxygen Evaluation Comments Treatment Charges O2 Evaluation - Inpatient 04/02/21 04/02/21 10:33 10:40 Home O2 Evaluation Test Phase Exercise Resting Oxygen Delivery Nasal Cannula Room Air Oxygen Flow Rate (L/min) 2 Pulse Oximetry (90-100 %) 92 92 Pulse Rate (60-100 beats/min) 103 H 90 Home Oxygen Evaluation Comments HOME O2 AT 2 L WITH ACTIVITY Treatment Charges
--- NOTE | 2021-04-02 11:20 | PCRCNOTE ---
HOME O2 REQUIRES AT 2 L WITH ACTIVITY. WILL ARRANGE WITH IV RESP CARE. CONTACT NAME IS AURELIA, PHONE # [phone] PERSONAL MOBILE
[2021-04-02] MEDS: SODIUM CHLORIDE 0.9% IV 500 ML 100 ML IV CONT (12:12)
[2021-04-02 12:14] LABS: Reflex Lactic Acid Yes or No Add Lactic
[2021-04-02 13:26] LABS: Lactic Acid 2.2 mmol/L (0.7-2.1)
[2021-04-02] MEDS: metroNIDAZOLE 250 MG TABLET 500 MG PO ×2 (14:21→22:43)
[2021-04-02] MEDS: AMOXICILLIN/CLAVULANATE K 500-125 MG TAB 1 TABLET PO ×2 (14:21→22:43)
--- NOTE | 2021-04-02 15:12 | PM.IMPN ---
Progress Note: A&P Assessment and Plan (1) Colitis: Code(s): K52.9 - Noninfective gastroenteritis and colitis, unspecified Status: Acute Assessment and Plan: WBC increased today and pt was having abdominal pain overnight -CT of the abdomen shows mild colitis -will start augmentin and flagyl -stools and pain already resolving. No pain to palpation to the abdomen. No signs of ischemic bowel. -stop steroids -give IV fluids for possible dehydration due to diarrhea -check cbcD tomorrow (2) Pneumonia due to 2019-nCoV: Code(s): U07.1 - COVID-19; J12.82 - Pneumonia due to coronavirus disease 2018 Status: Acute Assessment and Plan: Patient was tested positive for COVID on 03/18/2021 -continue remdesivir (day 9 of 10) and Lovenox. Decadron complete. -Continue with p.r.n. albuterol (she has not needed this) -The patient has already gotten the monoclonal antibodies -CTA shows no signs of PE but does show significant pneumonia -repeat CXR shows improvement -she is unvaccinated -home o2 eval for tomorrow (3) Depression: Code(s): F32.A - Depression, unspecified Status: Chronic Assessment and Plan: Improved. Patient's depression and anxiety has been worse since being diagnosed with COVID but improving daily -Continue Prozac and Xanax p.r.n. -support given (4) Anxiety: Code(s): F41.9 - Anxiety disorder, unspecified Status: Chronic Assessment and Plan: Continue Prozac and Xanax (5) Hypertension: Code(s): I10 - Essential (primary) hypertension Status: Chronic Assessment and Plan: Last blood pressure 99/51 -continue metoprolol but place parameters -recheck blood pressure after fluids. Lactic improving. (6) GERD (gastroesophageal reflux disease): Code(s): K21.9 - Gastro-esophageal reflux disease without esophagitis Status: Acute Assessment and Plan: Continue with IV Protonix and tums (7) Transaminitis: Code(s): R74.01 - Elevation of levels of liver transaminase levels Status: Acute Assessment and Plan: Resolved, likely due to COVID. -gallbladder was dilated on the CT scan and RUQ US shows diffuse fatty liver, mildly dilated common duct measuring 7mm (8) Acute respiratory failure with hypoxia: Code(s): J96.01 - Acute respiratory failure with hypoxia Status: Acute Assessment and Plan: resolved Subjective Date/time seen: 04/02/21 15:12 Interval history: Pt is a 61-year-old female here for COVID. Patient was seen today and did not have a good night or morning. She started having worsening abdominal cramps in her lower quadrants overnight with diarrhea. She woke up today and felt light headed and had cramps but only one soft stool. I saw her in the afternoon and the abdominal pain has resolved. She is feeling much better with the IV fluids going. She has no SOB, CP, fevers, chills, nausea or vomiting. Exam Narrative: General: Well developed well nourished patient in NAD HEENT: normocephalic Neck: supple Neuro: Alert and oriented x4 CV:RRR Resp: CTA. On room air. No conversational dyspnea. Abd: Soft, non distended. No pain to palpation. Positive bowel sounds. no signs of acute abdomen Extremities: No swelling, erythema, or pain to palpation. Objective Data Vital Signs Vital Signs: Vital Signs - 24 hr 04/01/21 15:40 04/01/21 20:00 04/02/21 05:50 Temperature 97.6 F 97.8 F 97.8 F Pulse Rate 70 73 87 Respiratory Rate 18 20 20 Blood Pressure 113/53 L 122/54 L 131/58 L Pulse Oximetry 92 94 91 04/02/21 08:37 04/02/21 10:30 04/02/21 10:31 Temperature Pulse Rate 87 Respiratory Rate Blood Pressure Pulse Oximetry 92 86 L 04/02/21 10:32 04/02/21 10:33 04/02/21 10:40 Temperature Pulse Rate 103 H 90 Respiratory Rate Blood Pressure Pulse Oximetry 87 L 92 92 04/02/21 14:14 Temperature 97.
[2021-04-02 18:43] LABS: Add Urine Microscopic? NO; Appearance Urine Clear (Clear); Bilirubin Urine Negative (Negative); Blood Urine Negative (Negative); Color Urine Straw (Yellow); Glucose Urine UA Negative (Negative); Ketones Urine Negative (Negative); Leukocyte Esterase Ur Negative LEU/UL (Negative); Nitrate Urine Negative (Negative); Protein Urine Negative (Negative); Specific Grav Ur 1.009 (1.001-1.035); Urobilinogen Urine Negative mg/dL (<2.0)
[2021-04-03] VITALS: BP 106/65; PULSE 68; RESP 18; TEMP 35.7; O2SAT 95
[2021-04-03 04:00] VITALS: BP 113/45; PULSE 64; RESP 18; TEMP 35.9; O2SAT 94
[2021-04-03] MEDS: AMOXICILLIN/CLAVULANATE K 500-125 MG TAB 1 TABLET PO ×3 (05:39→21:08)
[2021-04-03] MEDS: metroNIDAZOLE 250 MG TABLET 500 MG PO ×3 (05:39→21:08)
[2021-04-03] MEDS: ALPRAZolam (*CRX) 0.5 MG TABLET PO ×3 (08:07→22:36)
[2021-04-03 08:08] VITALS: PULSE 64
[2021-04-03] MEDS: guaiFENesin 12 HR 600 MG TABCR PO ×2 (08:08→21:08)
[2021-04-03] MEDS: METOPROLOL TARTRATE 25 MG TABLET PO (08:08)
[2021-04-03] MEDS: FLUoxetine HCL 20 MG CAPSULE PO (08:08)
[2021-04-03] MEDS: PHENYLEPH/SHARK OIL/MO/PETROL CREAM 26 GM 1 APPLIC RECTAL (08:08)
[2021-04-03] MEDS: ENOXAPARIN 40 MG/0.4 ML SYRINGE SUB-Q (08:08)
[2021-04-03] MEDS: SODIUM CHLORIDE NASAL GEL 14.1 GM 1 APPLIC NASAL (08:09)
[2021-04-03 08:37] LABS: Basophils Percent Auto 0.2 % (0.2-1.2); Hematocrit 39.7 % (37.0-47.0); Hemoglobin 13.2 g/dL (12.0-15.0); Immature Granulocyte Absolute 0.39 K/mm3 (0.00-0.031); Immature Granulocyte Percent A 1.7 % (0-0.5); Lymphocytes Absolute Auto 0.93 K/mm3 (0.9-3.2); Lymphocytes Percent Auto 3.9 % (18.3-44.2); Mean Corpuscular HGB Conc 33.2 g/dl (32-36); Mean Corpuscular Hemoglobin 30.6 pg (26-34); Mean Corpuscular Volume 91.9 fl (80-100); Mean Platelet Volume 10.1 fl (7.4-10.4); Monocytes Absolute Auto 1.6 K/mm3 (0.1-0.6); Monocytes Percent Auto 6.6 % (2.6-8.5); Neutrophils Absolute Auto 20.7 K/mm3 (1.3-6.7); Neutrophils Percent Auto 87.6 % (45.5-73.1); Platelet Count Result 346 k/mm3 (150-375); Red Blood Count 4.32 M/mm3 (4.2-5.4); Red Cell Distribution Width 13.4 % (11.5-14.5); White Blood Count 23.6 K/mm3 (4.5-10.0)
[2021-04-03 08:45] LABS: INR 1.2; Prothrombin Time 14.6 Seconds (11.1-14.7)
[2021-04-03 09:05] LABS: Lactic Acid Reflex 2.9 mmol/L (0.7-2.1)
[2021-04-03 09:28] LABS: Alanine Aminotransferase 20 U/L (4-35); Alkaline Phosphatase 55 U/L (38-126); Anion Gap 8 mmol/L (8-16); Aspartate Amino Transferase 23 U/L (14-36); Bilirubin,Total 0.7 mg/dL (0.2-1.3); Blood Urea Nitrogen 14 mg/dL (7-17); CRP 12.5 mg/dL (<1.0); Calcium 8.7 mg/dL (8.4-10.2); Carbon Dioxide 27 mmol/L (22-30); Chloride 107 mmol/L (98-107); Estimated CRCL calculation 84 ml/min; Estimated Glomerular Filt Rate > 60; Glucose 85 mg/dL (65-110); Magnesium 2.5 mg/dL (1.6-2.3); Potassium 4.2 mmol/L (3.4-5.0); Sodium 142 mmol/L (137-145)
[2021-04-03] MEDS: PANTOPRAZOLE 40 MG TABLET PO ×2 (09:35→21:08)
[2021-04-03 11:29] LABS: Reflex Lactic Acid Yes or No Add Lactic
[2021-04-03 12:08] LABS: Lactic Acid 1.6 mmol/L (0.7-2.1)
[2021-04-03 13:57] VITALS: BP 98/48; PULSE 75; RESP 18; TEMP 36.6; O2SAT 94
--- NOTE | 2021-04-03 15:24 | PM.IMPN ---
Progress Note: A&P Assessment and Plan (1) Colitis: Code(s): K52.9 - Noninfective gastroenteritis and colitis, unspecified Status: Acute Assessment and Plan: Pt and WBC improving -Will continue fluids -CT of the abdomen shows mild colitis -Continue augmentin and flagyl -stools and pain already resolving. No pain to palpation to the abdomen. No signs of ischemic bowel. -repeat CBC tomorrow (2) Pneumonia due to 2019-nCoV: Code(s): U07.1 - COVID-19; J12.82 - Pneumonia due to coronavirus disease 2018 Status: Acute Assessment and Plan: Patient was tested positive for COVID on 03/18/2021 -Remdesivir and decadron complete. Continue lovenox -Continue with p.r.n. albuterol (she has not needed this) -The patient has already gotten the monoclonal antibodies -CTA shows no signs of PE but does show significant pneumonia -repeat CXR shows improvement -she is unvaccinated -home o2 done, will need 2L of o2 with activity (3) Depression: Code(s): F32.A - Depression, unspecified Status: Chronic Assessment and Plan: Improved. Patient's depression and anxiety has been worse since being diagnosed with COVID but improving daily -Continue Prozac and Xanax p.r.n. -support given (4) Anxiety: Code(s): F41.9 - Anxiety disorder, unspecified Status: Chronic Assessment and Plan: Continue Prozac and Xanax (5) Hypertension: Code(s): I10 - Essential (primary) hypertension Status: Chronic Assessment and Plan: Last blood pressure 98/48 but feeling well -Will do IV fluids overnight to replenish -continue metoprolol with parameters -recheck blood pressure after fluids. Lactic resolved. (6) GERD (gastroesophageal reflux disease): Code(s): K21.9 - Gastro-esophageal reflux disease without esophagitis Status: Acute Assessment and Plan: Continue with IV Protonix and tums (7) Transaminitis: Code(s): R74.01 - Elevation of levels of liver transaminase levels Status: Acute Assessment and Plan: Resolved, likely due to COVID. -gallbladder was dilated on the CT scan and RUQ US shows diffuse fatty liver, mildly dilated common duct measuring 7mm (8) Acute respiratory failure with hypoxia: Code(s): J96.01 - Acute respiratory failure with hypoxia Status: Acute Assessment and Plan: resolved Subjective Date/time seen: 04/03/21 15:24 Interval history: Pt is a 61-year-old female here for COVID. Patient was seen today and feels much better today. She said yesterday scared her but she is doing better today. She continues to have mild (2/10) lower abdominal pain and had 4 soft stools but no further liquid diarrhea. She feels stronger and is walking to the bathroom and back without any lightheadedness or dizziness. She requires some o2 with movement but has not really had any SOB or cough. She denies CP, LE edema, nausea or vomiting. She is eating and drinking well. Exam Narrative: General: Well developed well nourished patient in NAD HEENT: normocephalic Neck: supple Neuro: Alert and oriented x4 CV:RRR Resp: CTA. On room air. No conversational dyspnea. Abd: Soft, non distended. No pain to palpation. Positive bowel sounds. no signs of acute abdomen. Extremities: No swelling, erythema, or pain to palpation. Objective Data Vital Signs Vital Signs: Vital Signs - 24 hr 04/02/21 17:30 04/02/21 20:00 04/03/21 00:00 Temperature 96 F L 96.2 F L Pulse Rate 81 74 68 Respiratory Rate 16 18 18 Blood Pressure 96/38 L 105/48 L 106/65 Pulse Oximetry 95 97 95 04/03/21 04:00 04/03/21 08:08 04/03/21 13:57 Temperature 96.7 F L 97.8 F Pulse Rate 64 64 75 Respiratory Rate 18 18 Blood Pressure 113/45 L 98/48 L Pulse Oximetry 94 94 Intake/Output Intake/Output: Intake & Output 03/31/21 04/01/21 04/02/21 04/03/21 23:59 23:59 23:59 23:59 Intake Total
[2021-04-03] MEDS: SODIUM CHLORIDE 0.9% IV 1,000 ML 100 ML IV CONT (16:12)
[2021-04-03 20:00] VITALS: BP 100/57; PULSE 70; RESP 18; TEMP 36.4; O2SAT 97
[2021-04-03] MEDS: ACETAMINOPHEN 325 MG TABLET 650 MG PO (21:07)
[2021-04-04] VITALS: BP 112/48; PULSE 66; RESP 16; TEMP 36.3; O2SAT 96
[2021-04-04 00:25] VITALS: O2SAT 95
[2021-04-04 04:00] VITALS: BP 121/59; PULSE 65; RESP 16; TEMP 36.7; O2SAT 96
[2021-04-04] MEDS: AMOXICILLIN/CLAVULANATE K 500-125 MG TAB 1 TABLET PO ×2 (06:32→14:39)
[2021-04-04] MEDS: metroNIDAZOLE 250 MG TABLET 500 MG PO ×2 (06:32→14:39)
[2021-04-04 07:13] LABS: Basophils Percent Auto 0.3 % (0.2-1.2); Eosinophils Percent Auto 0.2 % (0-4.4); Hematocrit 37.7 % (37.0-47.0); Hemoglobin 12.5 g/dL (12.0-15.0); Immature Granulocyte Absolute 0.19 K/mm3 (0.00-0.031); Immature Granulocyte Percent A 1.5 % (0-0.5); Lymphocytes Absolute Auto 1.47 K/mm3 (0.9-3.2); Lymphocytes Percent Auto 11.8 % (18.3-44.2); Mean Corpuscular HGB Conc 33.2 g/dl (32-36); Mean Corpuscular Hemoglobin 30.3 pg (26-34); Mean Corpuscular Volume 91.5 fl (80-100); Mean Platelet Volume 10.3 fl (7.4-10.4); Monocytes Percent Auto 7.8 % (2.6-8.5); Neutrophils Absolute Auto 9.8 K/mm3 (1.3-6.7); Neutrophils Percent Auto 78.4 % (45.5-73.1); Platelet Count Result 284 k/mm3 (150-375); Red Blood Count 4.12 M/mm3 (4.2-5.4); Red Cell Distribution Width 13.4 % (11.5-14.5); White Blood Count 12.5 K/mm3 (4.5-10.0)
[2021-04-04 07:25] LABS: Alanine Aminotransferase 17 U/L (4-35); Albumin Level 2.7 g/dL (3.5-5.1); Alkaline Phosphatase 52 U/L (38-126); Anion Gap 8 mmol/L (8-16); Aspartate Amino Transferase 23 U/L (14-36); Bilirubin,Total 0.7 mg/dL (0.2-1.3); Blood Urea Nitrogen 13 mg/dL (7-17); CRP 5.7 mg/dL (<1.0); Calcium 7.8 mg/dL (8.4-10.2); Carbon Dioxide 21 mmol/L (22-30); Chloride 108 mmol/L (98-107); Estimated CRCL calculation 84 ml/min; Estimated Glomerular Filt Rate > 60; Glucose 78 mg/dL (65-110); Potassium 3.4 mmol/L (3.4-5.0); Sodium 137 mmol/L (137-145)
[2021-04-04 08:00] VITALS: O2SAT 97
[2021-04-04] MEDS: ENOXAPARIN 40 MG/0.4 ML SYRINGE SUB-Q (08:58)
[2021-04-04] MEDS: POTASSIUM CHLORIDE 20 MEQ TABLET PO (08:58)
[2021-04-04 08:59] VITALS: PULSE 78
[2021-04-04] MEDS: PANTOPRAZOLE 40 MG TABLET PO (08:59)
[2021-04-04] MEDS: METOPROLOL TARTRATE 25 MG TABLET PO (08:59)
[2021-04-04] MEDS: FLUoxetine HCL 20 MG CAPSULE PO (09:01)
[2021-04-04] MEDS: guaiFENesin 12 HR 600 MG TABCR PO (09:01)
[2021-04-04] MEDS: SALINE 0.65% NAS SOLN 44 ML BTL 1 SPRAY NASAL (09:03)
[2021-04-04] MEDS: SODIUM CHLORIDE NASAL GEL 14.1 GM 1 APPLIC NASAL (09:04)
[2021-04-04] MEDS: PHENYLEPH/SHARK OIL/MO/PETROL CREAM 26 GM 1 APPLIC RECTAL (09:05)
[2021-04-04] MEDS: ALPRAZolam (*CRX) 0.5 MG TABLET PO (10:46)
--- NOTE | 2021-04-04 13:06 | PM.DS ---
DS: Admitting Diagnosis Discharge Date 04/04/21 Admitting Diagnosis covid pna DS: Discharge Diagnosis Discharge Diagnosis (1) Colitis: Code(s): K52.9 - Noninfective gastroenteritis and colitis, unspecified Status: Acute Assessment and Plan: Pt and WBC improving (down to 12.5 from 28.5) -CT of the abdomen shows mild colitis -Continue augmentin and flagyl outpt -Pt only had 2 soft stools day of discharge with no abdominal pain. (2) Pneumonia due to 2019-nCoV: Code(s): U07.1 - COVID-19; J12.82 - Pneumonia due to coronavirus disease 2018 Status: Acute Assessment and Plan: Patient was tested positive for COVID on 03/18/2021 -Remdesivir and decadron complete -The patient has already gotten the monoclonal antibodies -CTA shows no signs of PE but does show significant pneumonia -repeat CXR shows improvement -home o2 done, will need 2L of o2 with activity (3) Depression: Code(s): F32.A - Depression, unspecified Status: Chronic Assessment and Plan: Improved. Patient's depression and anxiety has been worse since being diagnosed with COVID but improving daily -Continue Prozac and Xanax p.r.n. -pt understands not to take her xanax with home benzo (4) Anxiety: Code(s): F41.9 - Anxiety disorder, unspecified Status: Chronic Assessment and Plan: Continue Prozac and Xanax (5) Hypertension: Code(s): I10 - Essential (primary) hypertension Status: Chronic Assessment and Plan: Last blood pressure 121/59 -continue home medication metoprolol (6) GERD (gastroesophageal reflux disease): Code(s): K21.9 - Gastro-esophageal reflux disease without esophagitis Status: Acute Assessment and Plan: chronic. continue PRN medications at home (7) Transaminitis: Code(s): R74.01 - Elevation of levels of liver transaminase levels Status: Acute Assessment and Plan: Resolved, likely due to COVID. -gallbladder was dilated on the CT scan and RUQ US shows diffuse fatty liver, mildly dilated common duct measuring 7mm (8) Acute respiratory failure with hypoxia: Code(s): J96.01 - Acute respiratory failure with hypoxia Status: Acute Assessment and Plan: resolved at rest. will need 2L with activity. DS: Summary Hospital Course Hospital Course: dos 04/04/21 Pt is a 61 year old female who presented to the ED for SOB and weakness after testing positive for covid 03/18/21. She had a CXR in the emergency room on 03/18/2021 which showed subtle opacity of the right lower lung zones. She had elevated D-dimer at that time 0.53. CT of the chest showed no pulmonary embolism. She was admitted to the hospitalist service and started on remdesivir, decadron, lovenox, and o2. She required o2 for many days and was up to 6 liters at one point was able to be weaned off to room air at rest. She still requires 2L with activity at discharge. She had severe anxiety during her stay and states she has had panic disorder since childhood. Her medications were temporally adjusted and was educated on this. The last few days her hospitalization was extended due to diarrhea, elevated WBC and CT findings consistent with colitis. She was stated on abx and the symptoms improved as did her WBC. Overall, day of discharge pt was feeling better and ready to go. She was educated about the worrisome signs and symptoms to come back to the ER for and was discharged in stable condition. She is to follow up with her pcp in 1-2 weeks after discharge. Please see above for further details Time Spent with Patient Time attestation: Total time spent providing and/or coordinating discharge services: Time spent: Greater than 30 minutes Exam Narrative: General: Well developed well nourished patient in NAD HEENT: normocephalic Neck: supple Neuro: Alert and oriented x4 CV:RRR Resp: CTA. On room air. No conversati
[2021-04-04 14:00] VITALS: PULSE 99; RESP 18; TEMP 36.7; O2SAT 97
== END 2021-04-04 15:00 | disposition home or self-care (01) | DRG 177 ==
LOC: ANHED 18:00 → ANH3MEDSUR 03-25 06:38
PROVIDERS: Nurse Practitioner; Physician Assistant; Admitting Provider Internal Medicine; Emergency Provider Nurse Practitioner; PCP Physician Assistant; Visit Provider Family Medicine
DX: U07.1 COVID-19 (principal); J12.82 Pneumonia due to coronavirus disease 2019; J96.01 Acute respiratory failure with hypoxia; F32.A Depression, unspecified; F41.9 Anxiety disorder, unspecified; K52.9 Noninfective gastroenteritis and colitis, unspecified; I10 Essential (primary) hypertension; K21.9 Gastro-esophageal reflux disease without esophagitis; R74.01 Elevation of levels of liver transaminase levels; R00.0 Tachycardia, unspecified; E87.6 Hypokalemia
CPT/HCPCS: 36415; 36600; 71045; 71250; 71275; 74176; 76705; 80048; 80053; 80074; 80076; 81003; 82375; 82728; 82805; 83050; 83605; 83615; 83690; 83735; 84460; 84484; 85025; 85027; 85610; 85730; 86140; 87040; 93005; 94618; 96361; 96365; 96366; 96375; 97110; 97161; 97165; 97530; 97535; 99291; A9270; C9113; J0696; J1100; J1650; J7030; J7040; M0243; Q0243; Q9967

== ENCOUNTER 2021-05-09 16:24 | Emergency (ER) | payer OTHER, SELFPAY ==
[2021-05-09 16:35] VITALS: BP 134/70; PULSE 94; RESP 22; TEMP 36.6; O2SAT 95
--- NOTE | 2021-05-09 17:35 | ED.GENADULT ---
HPI - General Adult General Chief complaint: Unspecified Stated complaint: COVID +, ABD PAIN, DIARRHEA Time Seen by Provider: 05/09/21 17:34 Source: patient and RN notes reviewed Mode of arrival: ambulatory Limitations: no limitations History of Present Illness HPI narrative: Patient is 61 years old white female presented to the ED with diarrhea started last week of February 2021. Patient reports loose watery stool, average 10-15 times a day. With abdominal cramps. Patient had CT scan of the abdomen and pelvis March 2021 which showed colitis. Patient was started on antidiabetic medication without improvement. Patient scheduled to see implementation coordinator coming Thursday. Patient had COVID infection at the end of February and was hospitalized for 11 days with COVID-pneumonia and diarrhea at that time. Patient also had history of tachyarrhythmia. Today patient feeling a little bit weaker than usual. Related Data Home Medications Medication Instructions Recorded Confirmed metoprolol tartrate 25 mg PO DAILY 03/24/21 04/24/21 fluoxetine 20 mg capsule 60 mg PO DAILY cap 05/07/21 famotidine 20 mg tablet 20 mg PO DAILY 05/08/21 Allergies Allergy/AdvReac Type Severity Reaction Status Date / Time estradiol AdvReac Unknown Unknown Verified 04/22/21 14:52 venlafaxine AdvReac Unknown Nervousness Verified 04/22/21 14:52 Review of Systems Review of Systems: CONSTITUTIONAL: Denies fever, chills, or sweats. EYES: Denies visual changes, redness, or discharge. ENT: Denies rhinorrhea, congestion, sore throat, or otalgia. CARDIOVASCULAR: Denies chest pain, palpitations, or edema. RESPIRATORY: Denies cough or dyspnea. GASTROINTESTINAL: Denies abdominal pain, nausea, vomiting, or diarrhea. GENITOURINARY: Denies dysuria or hematuria. SKIN: Denies rash or itching. MUSCULOSKELETAL: Denies back pain, joint pain, or myalgia. NEUROLOGIC: Denies headache, numbness, or weakness. PSYCHIATRIC: Denies anxiety or depression. [facility] Past Medical History Medical History Anxiety Anxiety COVID Depression GERD (gastroesophageal reflux disease) Hypertension Ovarian cyst Tachycardia Surgical History Surgical History H/O lumpectomy History of removal of ovarian cyst Family History Family History Mother Patient's mother is in good health Diabetes mellitus Father Patient's father is Diabetes mellitus Hypertension Sibling Patient's sister is in good health Grandparent Family history of malignant neoplasm Social History Social History Social History: The patient lives with her and she has 1 child. The patient and her own a business. The patient is a lifelong nonsmoker and does not use any alcohol or illicit drugs. Her is a durable power litigation attorney associate for healthcare. Code status full code Smoking status: Never smoker Second hand tobacco smoke exposure: No Alcohol intake: never Substance use: never Gender identity (if verbalized by the patient): Female Sexual Orientation (if Verbalized by the Patient): Straight or Heterosexual Spiritual care concerns: No Exam Narrative: General appearance: Well-developed, well-nourished Skin: Normal color Head: Normocephalic, nontraumatic Eyes: Clear conjunctiva ENT: Oropharynx normal, ears normal, nose normal Neck: Supple, nontender Chest and respiratory: Airway patent, no respiratory distress, no accessory muscle use Heart: Regular rate/rhythm Abdomen: Soft, nontender, no organomegaly, quiet bowel sounds Vascular: Normal peripheral pulses, normal capillary refill. Musculoskeletal: Normal range of motion, nontender back Neurologic: Alert and oriented ?3, PLANT ASS[employer] is normal as tested, no gross motor deficit
[2021-05-09 17:48] LABS: Basophils Absolute Auto 0.1 K/mm3 (0.0-0.1); Basophils Percent Auto 0.6 % (0.2-1.2); Eosinophils Absolute Auto 0.1 K/mm3 (0-0.3); Eosinophils Percent Auto 0.8 % (0-4.4); Hematocrit 40.8 % (37.0-47.0); Hemoglobin 13.8 g/dL (12.0-15.0); Immature Granulocyte Absolute 0.02 K/mm3 (0.00-0.031); Immature Granulocyte Percent A 0.2 % (0-0.5); Lymphocytes Absolute Auto 1.27 K/mm3 (0.9-3.2); Lymphocytes Percent Auto 14.2 % (18.3-44.2); Mean Corpuscular HGB Conc 33.8 g/dl (32-36); Mean Corpuscular Hemoglobin 30.9 pg (26-34); Mean Corpuscular Volume 91.5 fl (80-100); Mean Platelet Volume 9.6 fl (7.4-10.4); Monocytes Percent Auto 11.2 % (2.6-8.5); Neutrophils Absolute Auto 6.5 K/mm3 (1.3-6.7); Platelet Count Result 268 k/mm3 (150-375); Red Blood Count 4.46 M/mm3 (4.2-5.4); Red Cell Distribution Width 13.5 % (11.5-14.5); White Blood Count 8.9 K/mm3 (4.5-10.0)
[2021-05-09 17:56] LABS: Alanine Aminotransferase 22 U/L (4-35); Albumin Level 4.1 g/dL (3.5-5.1); Alkaline Phosphatase 67 U/L (38-126); Anion Gap 10 mmol/L (8-16); Aspartate Amino Transferase 32 U/L (14-36); Bilirubin,Total 0.6 mg/dL (0.2-1.3); Blood Urea Nitrogen 5 mg/dL (7-17); Calcium 9.4 mg/dL (8.4-10.2); Carbon Dioxide 26 mmol/L (22-30); Chloride 101 mmol/L (98-107); Estimated CRCL calculation 102 ml/min; Estimated Glomerular Filt Rate > 60; Glucose 121 mg/dL (65-110); Potassium 3.3 mmol/L (3.4-5.0); Sodium 137 mmol/L (137-145)
[2021-05-09] MEDS: SODIUM CHLORIDE 0.9% IV 1,000 ML 999 ML IV CONT (18:07)
[2021-05-09 18:11] LABS: Add Urine Microscopic? NO; Appearance Urine Clear (Clear); Bilirubin Urine Negative (Negative); Blood Urine Negative (Negative); Color Urine Yellow (Yellow); Glucose Urine UA Negative (Negative); Ketones Urine Negative (Negative); Leukocyte Esterase Ur Negative LEU/UL (Negative); Nitrate Urine Negative (Negative); Protein Urine Negative (Negative); Specific Grav Ur 1.006 (1.001-1.035); Urobilinogen Urine Negative mg/dL (<2.0)
[2021-05-09 19:15] VITALS: BP 142/86; PULSE 80; RESP 16; O2SAT 99
== END 2021-05-09 19:20 | disposition home or self-care (01) ==
PROVIDERS: Emergency Provider Emergency Medicine; PCP Physician Assistant
DX: E87.6 Hypokalemia (principal); R19.7 Diarrhea, unspecified; K21.9 Gastro-esophageal reflux disease without esophagitis; I10 Essential (primary) hypertension; F41.9 Anxiety disorder, unspecified; Z86.16 Personal history of COVID-19
CPT/HCPCS: 36415; 80053; 81003; 85025; 99283; J7030

== ENCOUNTER 2021-05-12 09:20 | Emergency (ER) | payer OTHER, SELFPAY ==
[2021-05-12] VITALS (9 sets, daily range): BP systolic 126–133; BP diastolic 72–73; PULSE 71–72; RESP 19; TEMP 36.6; O2SAT 93–98
[2021-05-12] MEDS: SODIUM CHLORIDE 0.9% IV 1,000 ML 999 ML IV CONT (09:44)
[2021-05-12] MEDS: ONDANSETRON INJ 4 MG/2 ML VIAL IV PUSH (09:45)
[2021-05-12 09:53] LABS: Basophils Percent Auto 0.8 % (0.2-1.2); Eosinophils Absolute Auto 0.1 K/mm3 (0-0.3); Eosinophils Percent Auto 1.6 % (0-4.4); Hematocrit 37.6 % (37.0-47.0); Hemoglobin 12.8 g/dL (12.0-15.0); Immature Granulocyte Absolute 0.03 K/mm3 (0.00-0.031); Immature Granulocyte Percent A 0.6 % (0-0.5); Lymphocytes Absolute Auto 1.11 K/mm3 (0.9-3.2); Lymphocytes Percent Auto 22.3 % (18.3-44.2); Mean Corpuscular Hemoglobin 30.4 pg (26-34); Mean Corpuscular Volume 89.3 fl (80-100); Mean Platelet Volume 9.9 fl (7.4-10.4); Monocytes Absolute Auto 0.7 K/mm3 (0.1-0.6); Monocytes Percent Auto 13.7 % (2.6-8.5); Platelet Count Result 251 k/mm3 (150-375); Red Blood Count 4.21 M/mm3 (4.2-5.4); Red Cell Distribution Width 13.1 % (11.5-14.5)
[2021-05-12 09:58] LABS: Alanine Aminotransferase 19 U/L (4-35); Albumin Level 3.7 g/dL (3.5-5.1); Alkaline Phosphatase 58 U/L (38-126); Anion Gap 7 mmol/L (8-16); Aspartate Amino Transferase 26 U/L (14-36); Bilirubin,Total 0.5 mg/dL (0.2-1.3); Blood Urea Nitrogen 4 mg/dL (7-17); Calcium 9.1 mg/dL (8.4-10.2); Carbon Dioxide 26 mmol/L (22-30); Chloride 104 mmol/L (98-107); Estimated Glomerular Filt Rate > 60; Glucose 118 mg/dL (65-110); Lipase 147 U/L (23-300); Potassium 3.3 mmol/L (3.4-5.0); Sodium 137 mmol/L (137-145)
--- NOTE | 2021-05-12 11:54 | ED.GENADULT ---
HPI - General Adult General Chief complaint: Abdominal Pain Stated complaint: abd pain, diarrhea Time Seen by Provider: 05/12/21 09:28 History of Present Illness HPI narrative: Patient is a 61-year-old female who presents ER with abdominal cramping and diarrhea. Reports this is been ongoing since February 2021. She has 10-15 loose stools a day and multiple episodes of nausea/vomiting. No fevers or chills or sweats. She has follow-up with GI scheduled for tomorrow. She said no loss of consciousness. No urinary frequency urgency or dysuria. She has famotidine, Bentyl at home which has not helped. No known sick contacts. No recent travel. No antibiotic usage. No blood in her stool or emesis. Related Data Home Medications Medication Instructions Recorded Confirmed metoprolol tartrate 25 mg PO DAILY 03/24/21 04/24/21 fluoxetine 20 mg capsule 60 mg PO DAILY cap 05/07/21 famotidine 20 mg tablet 20 mg PO DAILY 05/08/21 Allergies Allergy/AdvReac Type Severity Reaction Status Date / Time estradiol AdvReac Unknown Unknown Verified 04/22/21 14:52 venlafaxine AdvReac Unknown Nervousness Verified 04/22/21 14:52 Review of Systems Review of Systems: All systems reviewed & are unremarkable except as noted in HPI and below Constitutional: Constitutional: Denies chills, Denies fever(s) and Denies weakness ENT: Denies nasal congestion and Denies sore throat Cardiovascular: Cardiovascular: Denies chest pain and Denies rapid heart rate Respiratory: Respiratory: Denies cough and Denies dyspnea Gastrointestinal: Gastrointestinal: Reports abdominal pain, Reports diarrhea, Reports nausea and Reports vomiting PMFSH Past Medical History Medical History Anxiety Anxiety COVID Depression GERD (gastroesophageal reflux disease) Hypertension Ovarian cyst Tachycardia Surgical History Surgical History H/O lumpectomy History of removal of ovarian cyst Family History Family History Mother Patient's mother is in good health Diabetes mellitus Father Patient's father is Diabetes mellitus Hypertension Sibling Patient's sister is in good health Grandparent Family history of malignant neoplasm Social History Social History Social History: The patient lives with her and she has 1 child. The patient and her own a business. The patient is a lifelong nonsmoker and does not use any alcohol or illicit drugs. Her is a durable power criminal defense attorney for healthcare. Code status full code Smoking status: Never smoker Second hand tobacco smoke exposure: No Alcohol intake: never Substance use: never Gender identity (if verbalized by the patient): Female Sexual Orientation (if Verbalized by the Patient): Straight or Heterosexual Spiritual care concerns: No Exam Narrative: GENERAL: Well-appearing, well-nourished, and in no acute distress. HEAD: Normocephalic, atraumatic. ENT: Mucous membranes moist. CHEST: Clear to auscultation. No respiratory distress. HEART: Regular rate and rhythm. Normal peripheral pulses. ABDOMEN: Soft, nontender, nondistended. EXTREMITIES: Normal range of motion. No edema. SKIN: Warm, dry, no rash. NEURO: Alert and oriented x3. PSYCH: Mildly anxious, normal thought content. Course Course Emergency Course: Patient informed of results. Hydrated. Given antiemetics and feeling better. Discharge home. No diarrhea or emesis here. Patient is having a lot of anxiousness related to her underlying anxiety. She has had a lot of medication changes over the last 3 months. She has been attempting to contact [place] without status. She does have follow-up with a new PCP in 3 days and is hopeful to have some medication changes them. Suspect she may be jaskaran
== END 2021-05-12 13:08 | disposition home or self-care (01) ==
PROVIDERS: Emergency Provider Emergency Medicine; PCP Physician Assistant
DX: K52.9 Noninfective gastroenteritis and colitis, unspecified (principal); R11.2 Nausea with vomiting, unspecified; I10 Essential (primary) hypertension; K21.9 Gastro-esophageal reflux disease without esophagitis; Z86.16 Personal history of COVID-19; F41.9 Anxiety disorder, unspecified; F32.A Depression, unspecified
CPT/HCPCS: 36415; 80053; 83690; 85025; 96361; 96374; 99284; J2405; J7030

== ENCOUNTER 2021-05-21 01:35 | Day surgery (SDC) | payer OTHER, SELFPAY ==
[2021-05-16 13:07] VITALS: BMI 33.0
[2021-05-21 09:54] VITALS: BP 138/85; PULSE 119; RESP 20; TEMP 36.3; O2SAT 97; BMI 34.4
[2021-05-21] MEDS: LACTATED RINGERS 1,000 ML 150 ML IV CONT (10:08)
--- NOTE | 2021-05-21 10:15 | WPDANESEPPF ---
Anes - Initial Pre Proc Eval Procedure: Operation Date: 05/21/21 10:45 Proposed Procedures p Esophagogastroduodenoscopy & Colonoscopy - Herman Santos MD Date/Time: 05/21/21 10:15 Surgeon: Herman Santos MD Pre Op Diagnosis: nausea, diarrhea, abnormal CAT scan Patient Data Age: 61 Gender: F Height: 1.7 m Weight: 99.6 kg Last Vital Signs Temp 36.3 C L 05/21/21 09:54 Pulse 119 H 05/21/21 09:54 Resp 20 05/21/21 09:54 BP 138/85 05/21/21 09:54 Pulse Ox 97 05/21/21 09:54 Allergies Allergy/AdvReac Type Severity Reaction Status Date / Time estradiol AdvReac Unknown Nervousness Verified 05/16/21 13:09 venlafaxine AdvReac Unknown Nervousness Verified 05/16/21 13:09 Home Medications Medication Instructions Recorded Confirmed Type metoprolol tartrate 25 mg PO DAILY 03/24/21 05/16/21 History fluoxetine 20 mg capsule 20 mg PO DAILY cap 05/07/21 05/16/21 History alprazolam 0.5 mg tablet 0.5 mg PO DAILY PRN #30 tablet 05/08/21 05/21/21 Rx famotidine 20 mg tablet 20 mg PO DAILY 05/08/21 05/16/21 History ondansetron 4 mg PO Q6H PRN #10 tablet 05/12/21 05/16/21 Rx potassium chloride 20 meq PO BID #10 tablet 05/12/21 05/16/21 Rx clorazepate dipotassium 3.75 mg 3.75 mg PO QID PRN 05/13/21 05/16/21 History tablet Patient hx anesthesia problems: none Family hx anesthesia problems: none Results Review: All pre-operative results and documents have been reviewed as part of the pre-operative evaluation. [facility] Past Medical History Medical History Anxiety Anxiety COVID Depression GERD (gastroesophageal reflux disease) Hypertension Ovarian cyst Panic attacks Tachycardia Surgical History Surgical History H/O lumpectomy History of removal of ovarian cyst Family History Family History Mother Patient's mother is in good health Diabetes mellitus Father Patient's father is Diabetes mellitus Hypertension Sibling Patient's sister is in good health Grandparent Family history of malignant neoplasm Social History Social History Social History: The patient lives with her and she has 1 child. The patient and her own a business. The patient is a lifelong nonsmoker and does not use any alcohol or illicit drugs. Her is a durable power rope machine setter for healthcare. Code status full code Smoking status: Never smoker Second hand tobacco smoke exposure: No Alcohol intake: never Substance use: never Substance use type: does not use Living arrangements: with family Gender identity (if verbalized by the patient): Female Sexual Orientation (if Verbalized by the Patient): Straight or Heterosexual Spiritual care concerns: No Anes - Eval Final PreProcedure Day of Procedure 05/21/21 10:15 Patient weight: obese Heart: regular rate and rhythm Lungs: clear to auscultation Airway: Mallampati scale class II Neurological: alert and oriented Last oral intake: >/= 8 hours ASA classification: III Emergent: no Anesthetic plan: proceed Anesthesia type and monitoring: general GIVS and standard monitoring Results Review: All pre-operative results and documents have been reviewed as part of the pre-operative evaluation. Informed Consent: The patient's anesthetic plan and its attendant risks and benefits were discussed with the patient/family/POA. Questions were solicited and answers provided to the satisfaction of the patient/family/POA.
--- NOTE | 2021-05-21 10:29 | WPDHPUPDATE1 ---
History and Physical Update Update Date/Time: 05/21/21 10:29 History and Physical has been reviewed, including an updated exam of the patient. There are NO changes in the patient's condition. Risks, benefits, and alternatives have been discussed and questions answered. Patient agrees to proceed with procedure.
[2021-05-21] MEDS: BENZOCAINE (*SP) 60 ML SPRAY CAN (HURRICAINE) 1 SPRAY MUCOUS MEM (10:34)
--- NOTE | 2021-05-21 10:45 | SUR.OPER ---
EGD ended at 1041. Colonoscopy started at 1046.
[2021-05-21 10:59] VITALS: BP 99/52; PULSE 95; RESP 24; O2SAT 97
[2021-05-21 11:09] VITALS: BP 103/65; PULSE 85; RESP 20; O2SAT 98
[2021-05-21 11:19] VITALS: BP 105/62; PULSE 87; RESP 22; O2SAT 98
== END 2021-05-21 11:35 | disposition home or self-care (01) ==
PROVIDERS: PCP Physician Assistant; Visit Provider Internal Medicine Gastroenterology
PROC: 0DJ08ZZ Inspection of Upper Intestinal Tract, Via Natural or Artificial Opening Endoscopic (ICD-10-PCS; CPT 43235; principal; 2021-05-21 10:45)
DX: Z12.11 Encounter for screening for malignant neoplasm of colon (principal); K52.9 Noninfective gastroenteritis and colitis, unspecified; K57.30 Diverticulosis of large intestine without perforation or abscess without bleeding; K64.8 Other hemorrhoids; K29.50 Unspecified chronic gastritis without bleeding; K21.00 Gastro-esophageal reflux disease with esophagitis, without bleeding; I10 Essential (primary) hypertension; F41.8 Other specified anxiety disorders; Z86.16 Personal history of COVID-19; E66.9 Obesity, unspecified; Z68.34 Body mass index [BMI] 34.0-34.9, adult
CPT/HCPCS: 45380; 43239; 87081; 88305; J2704; J7120

== ENCOUNTER 2023-03-31 14:01 | Outpatient (CLI) | payer OTHER, SELFPAY ==
[2023-03-31 19:40] LABS: Basophils Percent Auto 0.7 % (0.2-1.2); Eosinophils Absolute Auto 0.1 K/mm3 (0-0.3); Eosinophils Percent Auto 1.4 % (0-4.4); Hematocrit 41.6 % (37.0-47.0); Hemoglobin 13.7 g/dL (12.0-15.0); Immature Granulocyte Absolute 0.03 K/mm3 (0.00-0.031); Immature Granulocyte Percent A 0.5 % (0-0.5); Lymphocytes Absolute Auto 1.75 K/mm3 (0.9-3.2); Lymphocytes Percent Auto 31.7 % (18.3-44.2); Mean Corpuscular HGB Conc 32.9 g/dl (32-36); Mean Corpuscular Volume 91.2 fl (80-100); Mean Platelet Volume 10.1 fl (7.4-10.4); Monocytes Absolute Auto 0.4 K/mm3 (0.1-0.6); Neutrophils Absolute Auto 3.2 K/mm3 (1.3-6.7); Neutrophils Percent Auto 57.7 % (45.5-73.1); Platelet Count Result 235 k/mm3 (150-375); Red Blood Count 4.56 M/mm3 (4.2-5.4); Red Cell Distribution Width 12.2 % (11.5-14.5); White Blood Count 5.5 K/mm3 (4.5-10.0)
[2023-03-31 19:47] LABS: Anion Gap 6 mmol/L (8-16); Blood Urea Nitrogen 13 mg/dL (7-17); CRP 0.8 mg/dL (<1.0); Calcium 9.1 mg/dL (8.4-10.2); Carbon Dioxide 26 mmol/L (22-30); Chloride 108 mmol/L (98-107); Cholesterol 189 mg/dL (0-200); Estimated Glomerular Filt Rate > 60; Glucose 103 mg/dL (65-110); HDL Direct 45 mg/dL; Sodium 140 mmol/L (137-145); Triglycerides 127 mg/dL (<150)
[2023-03-31 19:56] LABS: LDL Cholesterol Direct 114 mg/dL
[2023-03-31 20:20] LABS: Erythrocyte Sedimentation Rate 17 mm/hr (0-20)
== END 2023-03-31 14:02 | disposition home or self-care (01) ==
LOC: ANHGOSHLAB 14:03
PROVIDERS: PCP Emergency Medicine; Visit Provider Nurse Practitioner Family
DX: E87.6 Hypokalemia (principal); I10 Essential (primary) hypertension; F41.9 Anxiety disorder, unspecified; F41.0 Panic disorder [episodic paroxysmal anxiety]; K21.9 Gastro-esophageal reflux disease without esophagitis; E66.9 Obesity, unspecified
CPT/HCPCS: 36415; 80048; 80061; 84443; 85025; 85652; 86038; 86140

== ENCOUNTER 2023-04-06 14:27 | Outpatient (CLI) | payer OTHER, SELFPAY ==
--- NOTE | ~2023-04-06 | XR_ITS ---
Left ankle Technique: AP, oblique, and lateral views were obtained. Clinical History: Ganglion medial left ankle Findings: No acute fracture or dislocation is seen. Osseous alignment is anatomic. Ankle mortise and other visualized joint spaces are preserved. There is mature appearing ossification at the medial asp ect of the ankle, measuring up to approximately 1.8 cm in overall diameter. Impression: Soft tissue ossification at the medial aspect of the ankle, nonspecific. This could reflect myositis ossificans versus other heterotopic ossification. No other osseous or articular abnormality seen. Reviewed, dictated and finalized at location . /DIE MAKER Impression: Soft tissue ossification at the medial aspect of the ankle, nonspecific. This c ould reflect myositis ossificans versus other heterotopic ossification. No other osseous or articular abnormality seen.
--- NOTE | ~2023-04-06 | XR_ITS ---
XR hip BI wo pelvis 04/06/2023 15:20 Indication: Hip pain Procedure: 2 views each hip Comparison: No prior studies for comparison. Findings: There is mild osteoarthritis of the hips. No fracture or traumatic malalignment. No soft ti ssue abnormality. No foreign bodies. Impression: 1: Mild osteoarthritis of the hips. Reviewed, dictated and finalized at location A. R OPERATOR Impression: 1: Mild osteoarthritis of the hips.
--- NOTE | ~2023-04-06 | XR_ITS ---
[id number] 04/06/2023 15:20 Indication: Left knee pain Procedure: 2 views left knee Comparison: No prior studies for comparison. Findings: There is mild-moderate osteoarthritis of the left knee. No joint effusion. No fracture or t raumatic malalignment. No foreign bodies. Impression: 1: Mild-moderate osteoarthritis of the left knee. Reviewed, dictated and finalized at location A. TECHNICIAN Impression: 1: Mild-moderate osteoarthritis of the left knee.
--- NOTE | ~2023-04-06 | XR_ITS ---
[id number] 04/06/2023 15:20 Indication: Right knee pain Procedure: 2 views right knee Comparison: No prior studies for comparison. Findings: Severe osteoarthritis of the right knee. No acute fracture or traumatic malalignment. No fo reign bodies. Impression: 1: Severe tricompartment osteoarthritis of the right knee. Reviewed, dictated and finalized at location A. HAMMER SETTER UP Impression: 1: Severe tricompartment osteoarthritis of the right knee.
== END 2023-04-06 14:28 ==
PROVIDERS: PCP Nurse Practitioner Family; Visit Provider Nurse Practitioner Family
DX: M67.472 Ganglion, left ankle and foot (principal); M17.0 Bilateral primary osteoarthritis of knee; M61.472 Other calcification of muscle, left ankle and foot; M16.0 Bilateral primary osteoarthritis of hip
CPT/HCPCS: 73521; 73560; 73610

== ENCOUNTER 2024-03-16 13:36 | Outpatient (CLI) | payer OTHER, SELFPAY ==
[2024-03-16 20:31] LABS: Basophils Percent Auto 0.7 % (0.2-1.2); Eosinophils Absolute Auto 0.1 K/mm3 (0-0.3); Eosinophils Percent Auto 1.8 % (0-4.4); Hemoglobin 13.9 g/dL (12.0-15.0); Immature Granulocyte Absolute 0.01 K/mm3 (0.00-0.031); Immature Granulocyte Percent A 0.2 % (0-0.5); Lymphocytes Absolute Auto 1.74 K/mm3 (0.9-3.2); Lymphocytes Percent Auto 31.2 % (18.3-44.2); Mean Corpuscular HGB Conc 33.9 g/dl (32-36); Mean Corpuscular Hemoglobin 31.2 pg (26-34); Mean Corpuscular Volume 91.9 fl (80-100); Monocytes Absolute Auto 0.5 K/mm3 (0.1-0.6); Monocytes Percent Auto 8.1 % (2.6-8.5); Neutrophils Absolute Auto 3.2 K/mm3 (1.3-6.7); Platelet Count Result 237 k/mm3 (150-375); Red Blood Count 4.46 M/mm3 (4.2-5.4); Red Cell Distribution Width 12.2 % (11.5-14.5); White Blood Count 5.6 K/mm3 (4.5-10.0)
[2024-03-16 21:24] LABS: Alanine Aminotransferase 18 U/L (6-35); Albumin Level 4.1 g/dL (3.5-5.1); Alkaline Phosphatase 74 U/L (38-126); Anion Gap 4 mmol/L (4-12); Aspartate Amino Transferase 34 U/L (14-36); Bilirubin,Total 0.7 mg/dL (0.2-1.3); Blood Urea Nitrogen 11 mg/dL (7-17); Carbon Dioxide 28 mmol/L (22-30); Chloride 105 mmol/L (98-107); Cholesterol 181 mg/dL (0-200); Estimated Glomerular Filt Rate > 60; Glucose 128 mg/dL (65-110); HDL Direct 46 mg/dL; Potassium 3.8 mmol/L (3.4-5.0); Sodium 137 mmol/L (137-145); Triglycerides 145 mg/dL (<150)
[2024-03-16 21:35] LABS: LDL Cholesterol Direct 107 mg/dL
== END 2024-03-16 13:37 | disposition home or self-care (01) ==
LOC: ANHGOSHLAB 13:37
PROVIDERS: PCP Nurse Practitioner Family; Visit Provider Nurse Practitioner Family
DX: R06.02 Shortness of breath (principal); F41.9 Anxiety disorder, unspecified; R00.0 Tachycardia, unspecified; I10 Essential (primary) hypertension; E66.9 Obesity, unspecified
CPT/HCPCS: 36415; 80053; 80061; 84443; 85025